=== PATIENT | female | born 1945 | race Caucasian/White ===

== ENCOUNTER 2021-11-27 09:58 | Outpatient (CLI) | payer MEDICARE, SELFPAY ==
--- OUTSIDE RECORDS SUMMARY | 2021-11-27 10:01 | XMS_ITS | Clinical Summary ---
:1945 Author Organization [email or web address] [place] [address] Care Team Providers Name Role Phone Abigail Castaneda MD Primary Care Provider Allergies Active Allergy Reactions Severity Noted Date Comments Propoxyphene Nausea Only Medium 01/05/2009 Nsaids (Non-Steroidal Other - Describe In 10/07/2012 Patient has Anti-Inflammatory Drug) Comment Field bar iatric surgery. Should not ever take NSAIDS due to h igh risk for gastri c ulcers. Medications Medication Sig Dispensed Refills Start Date End Date Status atenolol (TENORMIN) 50 Take by mouth 0 Active mg tablet once daily. Pediatric Take 1 tablet by 0 10/08/2012 Ac tive Multivitamins-Iron mouth 2 times (FLINTSTONES COMPLETE) daily. chewable tablet CALCIUM CITRATE/VITAMIN Take 2,000 mg by 0 Active D3 (CALCIUM CITRATE + D mouth. Take up ORAL) to 2000 mg by oral route every day in divided doses. Cyanocobalamin (VITAMIN Place 2,500 mcg 0 Active B-12) 2,500 mcg subl under the tongue once daily. cholecalciferol (VITAMIN 0 Active D3) 1,000 unit tabletIndications: Achlorhydria, Vitamin B12 deficiency LISINOPRIL ORAL Take 20 mg by 0 Active mouth. 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 Vitamin B12 deficiency 10/07/2012 Status sleeve gastrectomy for weight loss 10/06/2012 Morbid obesity 08/06/2012 Body mass index 45.0-49.9, adult 08/06/2012 Essential hypertension, benign 08/06/2012 DJD (degenerative joint disease) 08/06/2012 Overview: -bilateral hip and knee replacements Lower extremity edema 08/06/2012 Missing teeth, acquired 08/06/2012 Personal history of colonic polyps 01/17/2012 History of colon polyps Immunizations Name Administration Dates Next Due COVID-19 vaccine ([employer] 30mcg/0.3mL) PF, 1, 04/14/2020 MDV Social History Tobacco Use Types Packs/Day Years Used Date Former Smoker Cigarettes Quit: 03/18/18 74 Smokeless Tobacco: Never Used Alcohol Use Standard Drinks/Week Comments Yes 0 (1 standard drink = 0.6 oz pure alcoho l) once in awhile Alcohol Habits Answer Date Recorded How often do you have a drink containing alcohol? Not asked How many drinks containing alcohol do you have on a Not aske d typical day when you are drinking? How often do you have six or more drinks on one Not asked occasion? Comment: once in awhile 09/28/2014 Sex Assigned at Date Recorded Not on file Obstetrics History Last Filed Vital Signs Vital Sign Reading Time Taken Comments Blood Pressure 143/76 01/09/2017 1:05 PM CDT Pulse 59 01/09/2017 1:05 PM CDT Temperature 36.5 ??C (97.7 ??F) 01/09/2017 10:08 AM CDT Respiratory Rate 16 01/09/2017 1:05 PM CDT Oxygen Saturation 96% 01/09/2017 1:05 PM CDT Inhaled Oxygen Concentration - - Weight 84 kg (185 lb 1.6 oz) 01/09/2017 10:08 AM CDT Height 160 cm (5' 3) 01/09/2017 10:08 AM CDT Body Mass Index 32.79 01/09/2017 10:08 AM CDT Plan of Treatment Health Maintenance Due Date Last Done Comments Tdap 06/23/1954 Depression screening for age 12+ 1955 Hepatitis C screening for age 18-79 06/23/1961 Tetanus booster 1963 Zoster (shingles) series for age 50+ 06/23/1993 (1 of 2) DEXA/DXA scan for age 65+ 06/23/2008 Medicare Wellness for age 65+ 06/23/2008 Pneumococcal series for age 65+ (1 - 06/23/2008 PCV) BMI (ht and wt on same day) for age 1012/17/2017 12/17/2016 18+ COVID-19 vaccine series (4 - Booster 04/15/2021 12/14/2020, 05/05/2020, for Pfizer series) 04/14/2020 Influenza for age 65+ 11/16/2021 Medical Devices Implanted Type Area Clinical Operations Specialist Device Shelf Model / Identifier Expiration Serial / Date Lot Seamguard Reinforcement 60 Flex - [id number] N/A: Osvaldo Vega re And [id number] / Implanted: Qty: 3 on 10/06/2012 at [facility] / [id number] Results Not on filefrom Last 3 Months Insurance Payer Benefit Plan / Subscriber ID Effective Dates Phone Addre ss Type Group MEDICARE PART B MEDICARE PART B [id number] 2008-Presen ATTN: CLAIMS - HB USE ONLY HB ONLY t [address] [place] [address] MEDICARE PART A MEDICARE PART A [id number] 2008-Presen ATTN: CLAIMS - HB USE ONLY HB ONLY t [address] [place] [address] MEDICARE PART B MEDICARE PART B [id number] 2008-Presen ATTN: CLAIMS - HB USE ONLY HB ONLY t [address] [place] [address] BLUE CROSS MR LEVI CROSS [id number] 2016-Presen [address] [address] [place] [address] [place], [place] [id number] BLUE CROSS MR MR BC [place] [id number] 2014-Presen [address] [place] [address] BLUE CROSS BLUE CROSS [id number] 2016-Presen [address] [address] [place] [address], [place] [id number] [place],Shanna Alavrado Personal/Family Self 1945 [id number] [place] [place] [address] Bridger Cuevasard Loren Personal/Family Self 11/07/1941 [address] [place] [address] Advance Directives Latest Code Status on File Code Status Date Activated Date Inactivated Comments Full Code 10/06/2012 8:22 AM 10/08/2012 6:08 PM Care Teams Biomedical Electronics Technician Relationship Specialty Start Date End Date Abigail Castaneda MD PCP - General 12/10/08
== END 2021-11-27 09:59 | disposition home or self-care (01) ==
PROVIDERS: PCP Internal Medicine; Visit Provider Obstetrics & Gynecology
DX: Z00.00 Encounter for general adult medical examination without abnormal findings (principal); I10 Essential (primary) hypertension; R32 Unspecified urinary incontinence; Z13.6 Encounter for screening for cardiovascular disorders
CPT/HCPCS: 80048; 80061; 87086

== ENCOUNTER 2021-12-07 12:14 | Outpatient (REF) | payer MEDICARE, BC, SELFPAY ==
--- OUTSIDE RECORDS SUMMARY | 2021-12-07 12:18 | XMS_ITS | Clinical Summary ---
:1945 Author Organization [facility] [place] [address] Care Team Providers Name Role Phone Abigail [...] Name Administration Dates Next Due COVID-19 vaccine ([employer] 30mcg/0.3mL) PF, 1, 04/14/2020 MDV Social History [...] 65+ 11/16/2021 Medical Devices Implanted Type Area Hog Slaughterer Device Shelf Model / Identifier Expiration Serial / Date Lot Seamguard Reinforcement 60 Flex - [id number] N/A: Osvaldo Vega re And [id number] / Implanted: Qty: 3 on 10/06/2012 at [facility] / [id number] Results Not on filefrom Last 3 Months Insurance Payer Benefit Plan / Subscriber ID Effective Dates Phone Addre ss Type Group MEDICARE PART B MEDICARE PART B [id number] 2008-Presen ATTN: CLAIMS - HB USE ONLY HB ONLY t [address] [place] [address] MEDICARE PART A MEDICARE PART A [id number] 2008-Presen ATTN: CLAIMS - HB USE ONLY HB ONLY t [address] [place] [address] MEDICARE PART B MEDICARE PART B [id number] 2008-Presen ATTN: CLAIMS - HB USE ONLY HB ONLY t [address] [place] [address] BLUE CROSS MR LEVI CROSS [id number] 2016-Presen [address] [address] [place], [place] [phone] BLUE CROSS MR MR BC [place] [id number] 2014-Presen [address] [place] [address] BLUE CROSS BLUE CROSS [id number] 2016-Presen [address] [address] [place] [address] [place], [place] [id number] [place],Shanna Alvarado Personal/Family Self 1945 [id number] [place] [address] Bridger Cuevasard Loren Personal/Family Self 11/07/1941 66 [address] [place] [address] Advance Directives Latest Code Status on File Code Status Date Activated Date Inactivated Comments Full Code 10/06/2012 8:22 AM 10/08/2012 6:08 PM Care Teams Foreign Exchange Position Clerk Relationship Specialty Start Date End Date Abigail Castaneda MD PCP - General 12/10/08
[2021-12-07 13:03] LABS: Basophils Absolute Auto 0.04 K/uL (0.00-0.30); Basophils Percent Auto 0.5 % (0.0-3.0); Eosinophils Absolute Auto 0.22 K/uL (0.00-0.50); Hematocrit 46.7 % (33.0-51.0); Hemoglobin* 15.4 gm/dL (12.0-16.0); Immature Granulocytes Abs Auto 0.01 K/uL (0.00-0.30); Lymphocytes Percent Auto 19.8 % (20-44); Mean Corpuscular HGB Conc 33 gm/dL (32-36); Mean Corpuscular Hemoglobin 29 pg (26-34); Mean Corpuscular Volume 87 fL (80-100); Monocytes Percent Auto 10.1 % (0.0-11.0); Neutrophils Absolute Auto 4.85 K/uL (1.7-7.0); Neutrophils Percent Auto 66.5 % (42.0-72.0); Platelet Count* 179 K/uL (140-440); RDW Coefficient of Variation % 12.6 % (11.5-15.5); Red Blood Count 5.36 m/uL (4.00-5.20); White Blood Count* 7.31 K/uL (4.50-11.00)
[2021-12-07 13:05] LABS: Chloride* 100 mmol/L (96-114); Sodium* 134 mmol/L (135-149)
[2021-12-07 13:06] LABS: Potassium* 4.5 mmol/L (3.6-5.1)
[2021-12-07 13:08] LABS: Alanine Aminotransferase* 13 U/L (4-35); Alkaline Phosphatase* 77 U/L (40-150); Aspartate Amino Transferase* 23 U/L (12-35); Bilirubin Total* 0.6 mg/dL (0.1-1.5); Blood Urea Nitrogen* 15 mg/dL (7-30); Carbon Dioxide* 29 mmol/L (20-32); Creatinine* 0.7 mg/dL (0.5-1.5); Estimated Glomerular Filt Rate 88 ml/min; Total Protein* 6.1 g/dL (6.0-8.3)
[2021-12-07 13:09] LABS: Calcium* 9.3 mg/dL (8.4-10.6); Glucose* 92 mg/dL (60-115)
[2021-12-07 13:12] LABS: Slide Review Reflex No
[2021-12-07 13:13] LABS: Vitamin B12* 676 pg/mL (243-894)
== END 2021-12-07 12:15 | disposition home or self-care (01) ==
LOC: LAB 12:14
PROVIDERS: PCP Internal Medicine; Visit Provider Surgery
DX: K20.90 Esophagitis, unspecified without bleeding (principal); Z98.84 Bariatric surgery status
CPT/HCPCS: 36415; 80053; 82607; 85025

== ENCOUNTER 2022-01-05 11:04 | Outpatient (CLI) | payer MEDICARE, BC, SELFPAY ==
--- OUTSIDE RECORDS SUMMARY | 2022-01-05 11:07 | XMS_ITS | Clinical Summary ---
:1945 Author Organization [facility] [place] [address] Care Team Providers Name Role Phone Abigail [...] Name Administration Dates Next Due COVID-19 vaccine ([employer] 30mcg/0.3mL) PF, 1, 04/14/2020 MDV Social History [...] 18+ COVID-19 vaccine series (4 - Booster 02/08/2021 12/14/2020, 05/05/2020, for Pfizer series) 04/14/2020 Influenza for age 65+ 11/16/2021 Medical Devices Implanted Type Area Deployment Technician Device Shelf Model / Identifier Expiration Serial / Date Lot Seamguard Reinforcement 60 Flex - [id number] N/A: Osvaldo Vega re And [id number] / Implanted: Qty: 3 on 10/06/2012 at [facility] / [id number] Results Not on filefrom Last 3 Months Insurance Payer Benefit Plan / Subscriber ID Effective Dates Phone Addre ss Type Group MEDICARE PART B MEDICARE PART B [id number] 2008-Presen ATTN: CLAIMS - HB USE ONLY HB ONLY t [address] [place] [address] MEDICARE PART A MEDICARE PART A [id number] 2008-Presen ATTN: CLAIMS - HB USE ONLY HB ONLY t [address] [place] [address] MEDICARE PART B MEDICARE PART B [id number] 2008-Presen ATTN: CLAIMS - HB USE ONLY HB ONLY t [address] [place] [address] BLUE CROSS MR LEVI CROSS [id number] 2016-Presen [address] [address] [place] [address] [place], [place] [id number] BLUE CROSS MR MR BC [place] [id number] 2014-Presen [address] [place] [address] BLUE CROSS BLUE CROSS [id number] 2016-Presen [address] [address] [place] [address] [place] [address] [place], [place] [id number] [place],Shanna Alvarado Personal/Family Self 1945 [id number] [place] [address] Bridger Cuevasard Loren Personal/Family Self 11/07/1941 66 [address] [place] [place] [address] Advance Directives Latest Code Status on File Code Status Date Activated Date Inactivated Comments Full Code 10/06/2012 8:22 AM 10/08/2012 6:08 PM Care Teams Clinical Application Consultant Relationship Specialty Start Date End Date Abigail Castaneda MD PCP - General 12/10/08
--- NOTE | 2022-01-05 11:30 | CRLHL7_ITS ---
For Patients: As a result of the Century Cures Act, medical imaging exams and procedure reports are released immediately into your electronic medical record. You may view this report before your referring provider. If you have questions, please contact your health care provider. BILATERAL SCREENING MAMMOGRAM WITH COMPUTER-AIDED DETECTION AND TOMOSYNTHESIS TECHNIQUE: CC and MLO views were obtained. These mammographic images have been obtained using full-field digital technique. These mammographic images were interpreted with the benefit of computer-aided detection. Breast Tomosynthesis was used in this interpretation. COMPARISON FILM: 01/04/21, 01/04/20, 01/02/19. FINDINGS: There are scattered areas of fibroglandular density IMPRESSION: There is no radiographic evidence for malignancy. ASSESSMENT: BI-RADS Category 2: Benign RECOMMENDATION: Routine screening mammogram in 1 year. A lay language report of this examination will be provided to the patient. Bakari Flores M.D. Diagnostic Radiologist [email or web address] KRYSTAL/Dictated by: Bakari Flores MD @ 01/05/2022 12:38:00 PM (Electronically Signed)
== END 2022-01-05 11:05 | disposition home or self-care (01) ==
LOC: MAMMO 11:04
PROVIDERS: PCP Internal Medicine; Visit Provider Internal Medicine
DX: Z12.31 Encounter for screening mammogram for malignant neoplasm of breast (principal)
CPT/HCPCS: 77063; 77067

== ENCOUNTER 2022-01-11 08:03 | Outpatient (CLI) | payer MEDICARE, BC, SELFPAY ==
--- OUTSIDE RECORDS SUMMARY | 2022-01-11 08:05 | XMS_ITS | Clinical Summary ---
:1945 Author Organization [facility] [place] [address] Care Team Providers Name Role Phone Abigail [...] Name Administration Dates Next Due COVID-19 vaccine ([employer] 30mcg/0.3mL) PF, 1, 04/14/2020 MDV Social History [...] 65+ 11/16/2021 Medical Devices Implanted Type Area Managing Director Device Shelf Model / Identifier Expiration Serial / Date Lot Seamguard Reinforcement 60 Flex - [id number] N/A: Osvaldo Vega re And [id number]# / Implanted: Qty: 3 on 10/06/2012 at [facility] / [id number] Results Not on filefrom Last 3 Months Insurance Payer Benefit Plan / Subscriber ID Effective Dates Phone Addre ss Type Group MEDICARE PART B MEDICARE PART B [id number] 2008-Presen ATTN: CLAIMS - HB USE ONLY HB ONLY t [address] [place] [address] MEDICARE PART A MEDICARE PART A [id number] 2008-Presen ATTN: CLAIMS - HB USE ONLY HB ONLY t [address] [place] [address] MEDICARE PART B MEDICARE PART B [id number] 2008-Presen ATTN: CLAIMS - HB USE ONLY HB ONLY t [address] [place] [address] BLUE CROSS MR LEVI CROSS [id number] 2016-Presen [address] [address] [place] [address] [place], [place] [phone] BLUE CROSS MR MR BC [place] [id number] 2014-Presen [address] [place] [address] BLUE CROSS BLUE CROSS [id number] 2016-[place]en [address] [address] [place] [address] [place], [place] [id number] [place],Shanna Alvarado Personal/Family Self 1945 [id number] [place] [address] Bridger Cuevasard Loren Personal/Family Self 11/07/1941 66 [address] [place] [address] Advance Directives Latest Code Status on File Code Status Date Activated Date Inactivated Comments Full Code 10/06/2012 8:22 AM 10/08/2012 6:08 PM Care Teams Senior Electronics Design Engineer Relationship Specialty Start Date End Date Abigail Castaneda MD PCP - General 12/10/08
== END 2022-01-11 08:04 | disposition home or self-care (01) ==
PROVIDERS: PCP Internal Medicine; Visit Provider Surgery
DX: Z12.11 Encounter for screening for malignant neoplasm of colon (principal); K63.5 Polyp of colon; K62.1 Rectal polyp; K63.89 Other specified diseases of intestine; Z86.010 Personal history of colon polyps
CPT/HCPCS: 45380; 45385; 88305; 99153; J1200; J2250; J3010

== ENCOUNTER 2022-04-02 12:25 | Outpatient (CLI) | payer MEDICARE, BC, SELFPAY | END 2022-04-02 12:26 | disposition home or self-care (01) | PROVIDERS: PCP Internal Medicine; Visit Provider Obstetrics & Gynecology | DX: R82.90 Unspecified abnormal findings in urine (principal) | CPT/HCPCS: 87086 ==

== ENCOUNTER 2022-06-07 07:41 | Day surgery (SDC) | payer MEDICARE, BC, SELFPAY ==
[2022-06-07] VITALS (9 sets, daily range): BP systolic 153–176; BP diastolic 72–86; PULSE 64–68; RESP 15–20; TEMP 36.5–36.6; O2SAT 95–98; BMI 30.9
--- NOTE | 2022-06-07 09:19 | P.ORPRC_ITS ---
Procedure Note Date of procedure: 06/07/22 Procedure: Preop diagnosis: Left upper extremity carpal tunnel syndrome Postop diagnosis: Left upper extremity carpal tunnel syndrome Procedure: Left upper extremity carpal tunnel release Anesthesia: Local Surgeon: Hilton Salazar MD video production assistant: HOLLIE Harrell EBL: 5 mL Complications: None Specimens: None Drains: None Indications: The patient has a history of left upper extremity carpal tunnel syndrome symptoms. Despite appropriate nonoperative management consisting of nighttime bracing and occupational therapy they continue to have symptoms. Operative intervention was recommended. The risks, benefits alternatives and expected outcomes were discussed in detail. These included but were not limited to: Infection, bleeding, injury to blood vessel or nerve, venous thromboembolism. All questions were answered to their satisfaction. The patient was placed supine on the operating room table. Local anesthesia was established with 0.5% Marcaine without epinephrine and 2% lidocaine without epinephrine. The hand was prepped and draped in usual sterile fashion. The limb was elevated the forearm pneumatic tourniquet was inflated to 250 mm of mercury. A longitudinal incision was made centered over the radial border of the ring f travon at the base of the palm. Subcutaneous dissection was sharply taken through the palmar fascia and the palmaris brevis to the transverse carpal ligament. The ligament was divided in line with the incision. Proximal and distal dissection was carried with tenotomy and Metzenbaum scissors for a wide decompression of the carpal tunnel. The tourniquet was released, bleeding was controlled with direct pressure. The wound was closed with a 3-0 nylon. A bulky dry dressing was applied, sponge and needle counts were correct x 2. The patient tolerated the procedure well, there were no apparent complications. They were sent to same day surgery in satisfactory condition. Plan: Use of the hand as tolerates. Discontinue the intraoperative dressing on postoperative day 3 and may get the wound wet as tolerates. Follow up in the office in 2 weeks for a wound check and suture removal.
== END 2022-06-07 09:40 | disposition home or self-care (01) ==
PROVIDERS: PCP Internal Medicine; Visit Provider Orthopaedic Surgery
PROC: (CPT 64721; principal; 2022-06-07 08:45)
DX: G56.02 Carpal tunnel syndrome, left upper limb (principal)
CPT/HCPCS: 64721

== ENCOUNTER 2022-11-30 08:30 | Outpatient (CLI) | payer MEDICARE, BC, SELFPAY | END 2022-11-30 08:31 | disposition home or self-care (01) | LOC: NFLDREF 12-04 09:27 | PROVIDERS: PCP Internal Medicine; Referring Provider Internal Medicine; Visit Provider Internal Medicine | DX: Z00.00 Encounter for general adult medical examination without abnormal findings (principal); I10 Essential (primary) hypertension; E66.9 Obesity, unspecified; Z98.84 Bariatric surgery status; Z13.0 Encounter for screening for diseases of the blood and blood-forming organs and certain disorders involving the immune mechanism; I35.1 Nonrheumatic aortic (valve) insufficiency; Z79.899 Other long term (current) drug therapy; Z13.21 Encounter for screening for nutritional disorder | CPT/HCPCS: 80053; 82306; 82525; 82607; 82728; 82747; 83735; 84443; 84446; 84590; 84597; 84630 ==

== ENCOUNTER 2022-12-03 08:22 | Outpatient (CLI) | payer MEDICARE, BC, SELFPAY | END 2022-12-03 08:23 | disposition home or self-care (01) | PROVIDERS: PCP Internal Medicine; Visit Provider Internal Medicine | DX: Z00.00 Encounter for general adult medical examination without abnormal findings (principal); I10 Essential (primary) hypertension; Z98.84 Bariatric surgery status | CPT/HCPCS: 82525; 84630 ==

== ENCOUNTER 2022-12-17 13:28 | Outpatient (CLI) | payer MEDICARE, BC, SELFPAY ==
--- NOTE | 2022-12-17 14:00 | CRLHL7_ITS ---
For Patients: As a result of the Century Cures Act, medical imaging exams and procedure reports are released immediately into your electronic medical record. You may view this report before your referring provider. If you have questions, please contact your health care provider. INDICATION: Epigastric pain, dyspnea. COMPARISON: None available. TECHNIQUE: Small- to moderate-sized hiatal hernia. Severe coronary artery calcifications. Dense mitral annular calcification. In the visualized portions of the lung bases there is also a calcified right lower lobe pulmonary nodule measuring 6 mm. No pleural effusion. FINDINGS: There are no renal or ureteral calculi. There is a pessary present. Distal rectal prolapse present. Endovaginal prolapse. Urinary bladder also somewhat low. Cholecystectomy change. Total left and right hip arthroplasty change. There is cystic change surrounding the acetabular component of the right hip, which could be particle disease. Severe scoliosis. Multilevel degenerative changes of the spine. Patient status post previous sleeve gastrectomy. Cholecystectomy change. No splenomegaly. Noncirrhotic liver morphology. Large cystic structure along the left pelvic sidewall measuring 3.6 x 4.3 cm appears to be arising from the bursa or a periarticular cyst in the left hip. No abdominal aortic aneurysm. Atherosclerotic change at present. No bowel obstruction. IMPRESSION : 1. Previous sleeve gastrectomy. Umdfq-fw-wyabgouf hiatal hernia. No free intraperitoneal air or fluid. Previous cholecystectomy change. No bowel obstruction. 2. No renal or ureteral calculi. 3. Severe coronary artery calcification. 4. Multiple other additional findings as outlined above. Please note that all CT scans at this facility use dose modulation, iterative reconstruction, and/or weight-based dosing when appropriate to reduce radiation dose to as low as reasonably achievable. Dictated by Monroe Carranza MD @ 12/19/2022 6:54:55 PM (Electronically Signed)
== END 2022-12-17 13:29 | disposition home or self-care (01) ==
LOC: CT 13:29
PROVIDERS: PCP Internal Medicine; Visit Provider Internal Medicine
DX: R10.13 Epigastric pain (principal); K44.9 Diaphragmatic hernia without obstruction or gangrene; I25.10 Atherosclerotic heart disease of native coronary artery without angina pectoris; Z98.84 Bariatric surgery status
CPT/HCPCS: 74176

== ENCOUNTER 2022-12-28 10:31 | Outpatient (CLI) | payer MEDICARE, BC, SELFPAY | END 2022-12-28 10:32 | disposition home or self-care (01) | LOC: RAD 10:32 | PROVIDERS: PCP Internal Medicine; Visit Provider Internal Medicine | DX: I35.1 Nonrheumatic aortic (valve) insufficiency (principal); I35.0 Nonrheumatic aortic (valve) stenosis; I34.0 Nonrheumatic mitral (valve) insufficiency | CPT/HCPCS: 93306 ==

== ENCOUNTER 2023-01-07 08:53 | Outpatient (CLI) | payer MEDICARE, BC, SELFPAY ==
--- NOTE | 2023-01-07 09:15 | CRLHL7_ITS ---
For Patients: As a result of the Cures Act, medical imaging exams and procedure reports are released immediately into your electronic medical record. You may view this report before your referring provider. If you have questions, please contact your health care provider. BILATERAL SCREENING MAMMOGRAM WITH COMPUTER-AIDED DETECTION AND TOMOSYNTHESIS TECHNIQUE: CC and MLO views were obtained. These mammographic images have been obtained using full-field digital technique. These mammographic images were interpreted with the benefit of computer-aided detection. Breast Tomosynthesis was used in this interpretation. COMPARISON FILM: 01/05/22, 01/04/21, 01/04/20. FINDINGS: There are scattered areas of fibroglandular density IMPRESSION: There is no radiographic evidence for malignancy. ASSESSMENT: BI-RADS Category 2: Benign RECOMMENDATION: Routine screening mammogram in 1 year. A lay language report of this examination will be provided to the patient. Bakari Flores M.D. Diagnostic Radiologist [email or web address] JEMMA/pratima Transcribed: 7:46 p.cy andujar/Dictated by: Bakari Flores MD @ 01/07/2023 11:30:00 AM (Electronically Signed)
== END 2023-01-07 08:54 | disposition home or self-care (01) ==
LOC: MAMMO 08:54
PROVIDERS: PCP Internal Medicine; Visit Provider Internal Medicine
DX: Z12.31 Encounter for screening mammogram for malignant neoplasm of breast (principal)
CPT/HCPCS: 77063; 77067

== ENCOUNTER 2023-01-17 08:39 | Outpatient (CLI) | payer MEDICARE, BC, SELFPAY ==
--- NOTE | 2023-01-17 10:10 | P.ANES_ITS ---
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
--- NOTE | 2023-01-17 10:37 | W.ANESCHARGE ---
Anesthesia Charges Start Date/Time Anesthesia Start Date: 01/17/23 Anesthesia Start Time: 09:25 Stop Date/Time Anesthesia Stop Date: 01/17/23 Anesthesia Stop Time: 10:04 Summary Extremes of Age - Over 70 or under 1: MDA
== END 2023-01-17 08:40 | disposition home or self-care (01) ==
LOC: OP CLINIC 08:40
PROVIDERS: PCP Internal Medicine; Visit Provider Surgery
DX: Z86.010 Personal history of colon polyps (principal); K63.5 Polyp of colon; K62.1 Rectal polyp; Z98.890 Other specified postprocedural states
CPT/HCPCS: 00811; 45380; 45385; 88305; 99100; J2704

== ENCOUNTER 2023-08-19 11:40 | Outpatient (CLI) | payer MEDICARE, BC, SELFPAY ==
--- OUTSIDE RECORDS SUMMARY | 2023-08-19 11:46 | XMS_ITS | Encounter Summary ---
Author Organization [facility] Address [address] [address] Phone Care Team Providers Care Laborer Starch Factory Name Role Phone Abigail Castaneda MD Primary Care Provider +1- [phone] Reason for Visit * Reason Comments Refill Request Encounter Details Date Type Department Care Team (Late st Contact Info) Description 08/20/2022 Refill [facility] [address] [place] [address] [phone] Jimy Linda MD [address] [facility] [address] [place], [place] [phone] Refill Request Social History Tobacco Use Types Packs/Day Years Used Date Smoking Tobacco: Former Smokeless Tobacco: Never Alcohol Use Standard Drinks/Week Comments Yes 0 (1 standard drink = 0.6 oz pur e alcohol) social Sex and Gender Information Value Date Recorded Sex Assigned at Female 01/10/2021 9:47 AM CDT Gender Identity Female 01/10/2021 9:47 AM CDT Sexual Orientation Not on file documented as of this encounter Plan of Treatment Not on file documented as of this encounter Visit Diagnoses Diagnosis Gastroesophageal reflux disease with esophagitis without hemorrhage Esophageal dysphagia Dysphagia, pharyngoesophageal phase documented in this encounter Care Teams Laborer Starch Factory Relationship Specialty Start Date End Date Abigail Castaneda MD [address] [address] PCP - General Internal Medicine 9/28/22 documented as of this encounter
--- OUTSIDE RECORDS SUMMARY | 2023-08-19 11:46 | XMS_ITS | Encounter Summary ---
Author Organization [facility] Address [address] [address] Phone Care Team Providers Care Internal Grinding Machine Operator Name Role Phone Abigail Castaneda MD Primary Care Provider +1- [phone] Reason for Visit * Reason Comments Refill Request Encounter Details Date Type Department Care Team (Late st Contact Info) Description 08/22/2022 Refill [facility] GASTRO[facility]Y [address] [place] [address] [phone] Jimy Linda MD [address] [facility] 400 [place], [place] [phone] Refill Request Social History Tobacco Use Types [...] phase documented in this encounter Care Teams Internal Grinding Machine Operator Relationship Specialty Start Date End Date Abigail Castaneda MD [address] [address] PCP - General Internal Medicine 9/28/22 documented as of this encounter
--- OUTSIDE RECORDS SUMMARY | 2023-08-19 11:46 | XMS_ITS | Clinical Summary ---
Author Organization [facility] Address [place], [place] [address] Care Team Providers Care Telephone Maintainer Name Role Phone Abigail Castaneda MD Primary Care Provider +1- [phone] Allergies Active Allergy Reactions Criticality Noted Date Comments Propoxyphene Nausea Only Medium 01/05/2009 Nsaids (Non-Steroidal Anti-Inflammatory Drug) Other - Describe In Comment Field 10/07/2012 Patient has bariatric surgery. Should not ever take NSAIDS due to high risk for gastric ulcers. Medications Medication Sig Dispensed Refills Start Date End Date Status atenolol (TENORMIN) 50 mg tablet Take by mouth once daily. Active Pediatric Multivitamins-Iron (FLINTSTONES COMPLETE) chewable tablet Take 1 tablet by mouth 2 times daily. 0 10/08/2012 Active CALCIUM CITRATE/VITAMIN D3 (CALCIUM CITRATE + D ORAL) Take 2,000 mg by mouth. Take up to 2000 mg by oral route every day in divided doses. Active Cyanocobalamin (VITAMIN B-12) 2,[address] 2,500 mcg under the tongue once daily. Active cholecalciferol (VITAMIN D3) 1,000 unit tabletIndications:Achl orhydria,Vitamin B12 deficiency 0 Active LISINOPRIL ORAL Take 20 mg by mouth. 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 Vitamin B12 deficiency 10/07/2012 Status sleeve gastrectomy for weight loss 2012 Morbid obesity 08/06/2012 Body mass index 45.0-49.9, adult 08/06/2012 Essential hypertension, benign 08/06/2012 DJD (degenerative joint disease) 08/06/2012 Overview: -bilateral hip and knee replacements Lower extremity edema 08/06/2012 Missing teeth, acquired 08/06/2012 Personal history of colonic polyps 01/17/2012 History of colon polyps Immunizations Name Administration Dates Next Due COVID-19 vaccine (Thinkglue 30mcg/0.3mL) P F, MDV 05/05/2020,04/14/2020 Social History Tobacco Use Types Packs/Day Years Used Date Smoking Tobacco: Former Cigarettes Q uit: 03/18/1975 Smokeless Tobacco: Never Alcohol Use Standard Drinks/Week Comments Yes 0 (1 standard drink = 0.6 oz pur e alcohol) once in awhile Sex and Gender Information Value Date Recorded Sex Assigned at Not on file Gender Identity Not on file Sexual Orientation Not on file Obstetrics History Last Filed Vital Signs Vital Sign Reading Time Taken Comments Blood Pressure 143/76 01/09/2017 1:05 PM CDT Pulse 59 01/09/2017 1:05 PM CDT Temperature 36.5 ??C (97.7 ??F) 01/09/2017 10:08 AM C DT Respiratory Rate 16 01/09/2017 1:05 PM CDT [...] 06/23/1954 Depression screening for age 12+ 1955 Tetanus booster 1963 Zoster (shingles) series for age 50+ (1 of 2) 06/23/1993 DEXA/DXA scan for age 65+ 06/23/2008 Medicare Wellness for age 65+ 06/23/2008 Pneumococcal series for age 65+ (1 of 1 - PCV) 06/23/2008 BMI (ht and wt on same day) for age 18+ 12/17/2017 12/17/2016 COVID-19 vaccine series (2022- season) 2022 01/25/2022, 08/02/2021, 12/14/2020, Additional history exists Influenza for age 65+ 11/17/2023 Medical Devices Implanted Type Area Senior Systems Analyst Device Identifier Shelf Expiration Date Model / Serial / Lot Seamguard Reinforcement 60 Flex - [id number] Implanted:Qty: 3 on 10/06/2012 at [facility] N/A: [employer] [id number] A# / / [id number] Advance Directives * Full Code (Latest Code Status on File) Date Activated Date Inactivated Comments 10/06/2012 8:22 AM 10/08/2012 6:08 PM Care Teams Telephone Maintainer Relationship Specialty Start Date End Date Abigail Castaneda MD PCP - General 12/10/08
--- OUTSIDE RECORDS SUMMARY | 2023-08-19 11:46 | XMS_ITS | Clinical Summary ---
Author Organization [facility] Address [address] [address] Phone Care Team Providers Care Boat Joiner Helper Name Role Phone Abigail Castaneda MD Primary Care Provider +1- [phone] Allergies Active Allergy Reactions Criticality Noted Date Comments Propoxyphene N-Apap Nausea Only Low 01/10/2021 Nsaids Other Low 08/25/2015 Not to take after sleeve gastrectomy Medications Medication Sig Dispensed Refills Start Date End Date Status calcium citrate-vitamin D (Calcium Citrate + D3) 315-200 MG-UNIT oral tablet Take 1 Tablet by mouth three times a day. Active Cholecalciferol (Vitamin D3) 1.25 MG (64565 UT) Capsule Take by mouth. Ac tive Cyanocobalamin [address] under the tongue one time a day as needed. Active lisinopril (Prinivil, Zestril) 20 MG tablet Take by mouth one time a day. 01/03/2021 Active Pediatric Multivitamins-Iron (Flintstones Complete) 18 MG Tablet Chewable Take 2 Tablets by mouth one time a day. Active omeprazole (PriLOSEC) 40 MG delayed-release capsuleIndications:Ga stroesophageal reflux disease with esophagitis without hemorrhage,Esophageal dysphagia TAKE 1 CAPSULE BY MOUTH ONCE DAILY BEFORE MEALS - DO NOT CRUSH 90 Capsule 02/14/2022 Active Active Problems Problem Noted Date Diagnosed Date Bariatric surgery status 12/14/2021 Esophageal dysphagia 03/21/2021 Last Assessment & Plan: Shanna is status post EGD done for evaluation of progressive dysphagia and heartburn. She is status post prior gastric sleeve surgery. She had an esophagram suggesting motility abnormality, hiatal hernia and possible esophageal narrowing with mucosal irregularity. An EGD revealed a 3cm hiatal hernia, erosive and ulcerative distal esophagitis and some tortuosity and dilation of the esophagus. Dilation to 18mm was performed. Biopsies revealed distal esophageal inflammation but were otherwise ok. She has been using Omeprazole 40mg subsequently and is symptomatically much improved and feeling and swallowing much better. We completed a manometry which revealed 2 abnormal horizontal pressure bands throughout with apparent normal relaxation at the LES with normal IRP and normal peristalsis at times. I am uncertain the significance of the manometry findings but would suspect this is secondary to her prior gastric bypass surgery and some abnormal motility contributing to her dysphagia. We have discussed this in detail. I have recommended referral to a tertiary center to evaluate the manometry findings further, although, as she is symptomatically much improved at present she wishes to monitor this further for now and will call with progressive symptoms. She will continue the daily Omeprazole to control her ongoing reflux post gastric bypass and with a hiatal hernia. Gastroesophageal reflux dise ase with esophagitis without hemorrhage 03/21/2021 Surgical History Surgery Date Site/Laterality Comments KNEE ARTHROPLASTY GASTRECTOMY CHOLECYSTECTOMY PARATHYROID GLAND SURGERY CARPAL TUNNEL RELEASE HYSTERECTOMY HIP ARTHROSCOPY UPPER GASTROINTESTINAL ENDOSCOPY 01/10/2021 N/A Procedure: ESOPHAGOGASTRODUODENOSCOP Y; Surgeon: Jimy Linda MD; Location: [facility] END[facility]COPY Medical History Medical History Date Comments Heart murmur Hypertension Hiatal hernia Gastroesophageal reflux disease Family History Medical History Relation Comments GI Disease Father Esophageal Steno sis Relation Status Comments Father Social History Tobacco Use Types Packs/Day Years Used Date Smoking Tobacco: Former Smokeless Tobacco: Never Alcohol Use Standard Drinks/Week Comments Yes 0 (1 standard drink = 0.6 oz pur e alcohol) social Sex and Gender Information Value Date Recorded Sex Assigned at Female 01/10/2021 9:47 AM CDT Gender Identity Female 01/10/2021 9:47 AM CDT Sexual Orientation Not on file Obstetrics History Last Filed Vital Signs Vital Sign Reading Time Taken Comments Blood Pressure 165/91 02/28/2021 9:57 AM SCREEN MACHINE OPERATOR Pulse 63 02/28/2021 9:57 AM SCREEN MACHINE OPERATOR Temperature 36.4 ??C (97.5 ??F) 01/10/2021 10:31 AM C DT Respiratory Rate 18 01/10/2021 11:33 AM CDT Oxygen Saturation 96% 01/10/2021 11:33 AM CDT Inhaled Oxygen Concentration - - Weight 93.4 kg (206 lb) 12/14/2021 8:54 AM CDT Height 158.8 cm (5' 2.5) 12/14/2021 8:54 AM CDT Body Mass Index 37.08 12/14/2021 8:54 AM CDT Plan of Treatment Health Maintenance Due Date Last Done Comments MEDICARE AWV 1945 PERTUSSIS (Standing Order) 06/23/1962 TETANUS (Standing Order) 06/23/1962 Shingrix (Zoster recombinant ) vaccine (Standing Order) (1 of 2) 06/23/1993 RSV Vaccination (60+ yrs) (Abrysvo/Arexvy) (1 - 1-dose 60+ series) 2003 DXA,FEMALES AGE 65 OR GREATER 06/23/2008 Pneumococcal Vaccine: 65+ yr s (Standing Order) (1 of 1 - PCV) 06/23/2008 Influenza Vaccine Seasonal (Standing Order) (#1) 2022 HPV Vaccine (Standing Order) Aged Out No longer eligible based on patient's age to complete this topic Hepatitis B Vaccine (Standin g Order) Aged Out No longer eligible b ased on patient's age to complete this topic Care Teams Boat Joiner Helper Relationship Specialty Start Date End Date Abigail Castaneda MD [facility] [address] [place], [place] [phone] (work) PCP - General Internal Medicine 12/13/21
== END 2023-08-19 11:41 | disposition home or self-care (01) ==
LOC: NFLDREF 11:40
PROVIDERS: PCP Internal Medicine; Visit Provider Obstetrics & Gynecology
DX: R39.15 Urgency of urination (principal)
CPT/HCPCS: 87086

== ENCOUNTER 2023-12-05 07:40 | Outpatient (CLI) | payer MEDICARE, BC, SELFPAY ==
--- OUTSIDE RECORDS SUMMARY | 2023-12-06 08:47 | XMS_ITS | Clinical Summary ---
Author Organization [facility] Address [place], [place] [address] Care Team Providers Care Manager Product Name Role Phone Abigail Castaneda MD Primary Care Provider +1- [phone] Allergies Active Allergy Reactions Criticality Noted Date [...] benign 08/06/2012 DJD (degenerative joint disease) 08/06/2012 Overview (08/06/2012): -bilateral hip and knee replacements Lower extremity edema 08/06/2012 Missing teeth, acquired 08/06/2012 Personal history of colonic polyps 01/17/2012 History of colon polyps Immunizations Name Administration Dates Next Due COVID-19 vaccine ([employer] 30mcg/0.3mL) P F, MDV 05/05/2020,04/14/2020 Social History [...] for age 50+ (1 of 2) 06/23/1993 RSV vaccine for adults or (1 - 1-dose 60+ series) 2003 DEXA/DXA scan for age 65+ 06/23/2008 Medicare Wellness for age 65+ 06/23/2008 Pneumococcal series for age 65+ (1 of 1 - PCV) 06/23/2008 BMI (ht and wt on same day) for age 18+ 12/17/2017 12/17/2016 COVID-19 vaccine series ( season) 2023 01/25/2022, 08/02/2021, 12/14/2020, Additional history exists Influenza for age 65+ 11/17/2023 Medical Devices Implanted Type Area Paper Ruler Device Identifier Shelf Expiration Date Model / Serial / Lot Seamguard Reinforcement 60 Flex - [id number] Implanted:Qty: 3 on 10/06/2012 at [facility] N/A: [facility] [employer] [id number] A# / / [id number] Advance Directives * Full Code (Latest Code Status on File) Date Activated Date Inactivated Comments 10/06/2012 8:22 AM 10/08/2012 6:08 PM Care Teams Manager Product Relationship Specialty Start Date End Date Abigail Castaneda MD PCP - General 12/10/08
--- OUTSIDE RECORDS SUMMARY | 2023-12-06 08:47 | XMS_ITS | Encounter Summary ---
Author Organization [facility] Address [address] [address] Phone Care Team Providers Care Locomotive Driver Name Role Phone Abigail Castaneda MD Primary Care Provider +1- [phone] Reason for Visit * Reason Comments Refill Request Encounter Details Date Type Department Care Team (Late st Contact Info) Description 08/22/2022 Refill [facility] GASTRO[facility]OLOGY [address] [place] [address] [phone] Jimy Linda MD 560 [facility] [address] [place], [place] [phone] Refill Request Social History Tobacco Use Types [...] phase documented in this encounter Care Teams Locomotive Driver Relationship Specialty Start Date End Date Abigail Castaneda MD [address] [address] PCP - General Internal Medicine 9/28/22 documented as of this encounter
--- OUTSIDE RECORDS SUMMARY | 2023-12-06 08:47 | XMS_ITS | Clinical Summary ---
Author Organization [facility] Address [address] [address] Phone Care Team Providers Care Drawing Frame Tender Name Role Phone Abigail Castaneda MD Primary Care Provider +1- [phone] Allergies Active Allergy Reactions Criticality Noted Date Comments Propoxyphene N-Apap Nausea Only Low 01/10/2021 Nsaids Other Low 08/25/2015 Not to take after sleeve gastrectomy Medications Medication Sig Dispensed Refills Start Date End Date Status calcium citrate-vitamin D (Calcium Citrate + D3) 315-200 MG-UNIT oral tablet Take 1 Tablet by mouth three times a day. Active Cholecalciferol (Vitamin D3) 1.25 MG (76762 UT) Capsule Take by mouth. Ac tive [...] ESOPHAGOGASTRODUODENOSCOP Y; Surgeon: Jimy Linda MD; Location: [facility] END[facility]COPY Medical History Medical History Date Comments [...] Comments Blood Pressure 165/91 02/28/2021 9:57 AM EXTENSION SERVICE SPECIALIST IN CHARGE Pulse 63 02/28/2021 9:57 AM EXTENSION SERVICE SPECIALIST IN CHARGE Temperature 36.4 ??C (97.5 ??F) 01/10/2021 10:31 [...] Order) (1 of 1 - PCV) 06/23/2008 COVID-19 Vaccine (2022-2 4 season) 2023 Influenza Vaccine Seasonal (Standing Order) (#1) 2023 HPV Vaccine (Standing Order) Aged Out No longer eligible based on patient's age to complete this topic Hepatitis B Vaccine (Standin g Order) Aged Out No longer eligible b ased on patient's age to complete this topic Care Teams Drawing Frame Tender Relationship Specialty Start Date End Date Abigail Castaneda MD [address] [address] PCP - General Internal Medicine 12/13/21
--- OUTSIDE RECORDS SUMMARY | 2023-12-06 08:47 | XMS_ITS | Encounter Summary ---
Author Organization [facility] Address [address] [address] Phone Care Team Providers Care Malt House Loader Name Role Phone Abigail Castaneda MD Primary Care Provider +1- [phone] Reason for Visit * Reason Comments Refill Request Encounter Details Date Type Department Care Team (Late st Contact Info) Description 08/20/2022 Refill [facility] GASTROENTEROLOGY [address] [place] [address] [phone] Jimy Linda MD 560 [facility] [address] [place], [place] [phone] Refill Request Social History Tobacco Use Types [...] phase documented in this encounter Care Teams Malt House Loader Relationship Specialty Start Date End Date Abigail Castaneda MD [address] [address] PCP - General Internal Medicine 9/28/22 documented as of this encounter
== END 2023-12-05 07:41 | disposition home or self-care (01) ==
LOC: NFLDREF 12-06 08:46
PROVIDERS: PCP Internal Medicine; Referring Provider Internal Medicine; Visit Provider Internal Medicine
DX: I10 Essential (primary) hypertension (principal); Z98.84 Bariatric surgery status; Z13.21 Encounter for screening for nutritional disorder
CPT/HCPCS: 80053; 82306; 82525; 82607; 82728; 83540; 83550; 83735; 84443; 84446; 84590; 84597; 84630

== ENCOUNTER 2024-01-09 09:57 | Outpatient (CLI) | payer MEDICARE, BC, SELFPAY ==
--- OUTSIDE RECORDS SUMMARY | 2024-01-09 10:06 | XMS_ITS | Clinical Summary ---
Author Organization [facility] Address [address] [address] Phone Care Team Providers Care It Audit Manager Name Role Phone Abigail Castaneda MD Primary Care Provider +1- [phone] Allergies Active Allergy Reactions Criticality Noted Date Comments Propoxyphene N-Apap Nausea Only Low 01/10/2021 Nsaids Other Low 08/25/2015 Not to take after sleeve gastrectomy Medications calcium citrate-vitamin D (Calcium Citrate + D3) 315-200 MG-UNIT oral tablet Take 1 Tablet by mouth three times a day. Active Cholecalciferol (Vitamin D3) 1.25 MG (36663 UT) Capsule Take by mouth. Active Cyanocobalamin [address] under the tongue one time a day as needed. Active lisinopril (Prinivil, Zestril) 20 MG tablet Take by mouth one time a day. 01/03/2021 Active Pediatric Multivitamins-Ir on (Flintstones Complete) 18 MG Tablet Chewable Take 2 Tablets by mouth one time a day. Active omeprazole (PriLOSEC) 40 MG delayed-release capsuleIndicatio ns:Gastroesophag eal reflux disease with esophagitis without hemorrhage,Esoph ageal dysphagia TAKE 1 CAPSULE BY MOUTH ONCE DAILY BEFORE MEALS - DO NOT CRUSH 90 Capsule 02/14/2022 Active Active Problems Problem Noted Date Diagnosed Date Bariatric surgery status 12/14/2021 Esophageal dysphagia 03/21/2021 Assessment & Plan (03/21/2021 4:58 PM BACKPACKERS MANAGER): Shanna is status post EGD done for [...] ESOPHAGOGASTRODUODENOSCOP Y; Surgeon: Jimy Linda MD; Location: [facility] Medical History Medical History Date Comments Heart murmur Hypertension Hiatal hernia Gastroesophageal reflux disease Family History Medical History Relation Comments GI Disease Father Esophageal Steno sis Relation Status Comments Father Social History Tobacco Use Types Packs/Day Years Used Date Smoking Tobacco: Former Smokeless Tobacco: Never Alcohol Use Standard Drinks/Week Comments Yes 0 (1 standard drink = 0.6 oz pur e alcohol) social Comments No Sex and Gender Information Value Date Recorded Sex Assigned at Female 01/10/2021 9:47 AM CDT Legal Sex Female 4:14 PM CDT Gender Identity Female 01/10/2021 9:47 AM CDT Sexual Orientation Not on file Obstetrics History Last Filed Vital Signs Vital Sign Reading Time Taken Comments Blood Pressure 165/91 02/28/2021 9:57 AM BACKPACKERS MANAGER Pulse 63 02/28/2021 9:57 AM BACKPACKERS MANAGER Temperature 36.4 ??C (97.5 ??F) 01/10/2021 10:31 [...] vaccine (Standing Order) (1 of 2) 06/23/1993 DXA,FEMALES AGE 65 OR GREATER 06/23/2008 Pneumococcal Vaccine: 65+ yr s (Standing Order) (1 of 1 - PCV) 06/23/2008 RSV Vaccination (60+ yrs) (Abrysvo/Arexvy) (1 - 1-dose 75+ series) 06/23/2018 COVID-19 Vaccine (2023-2 5 season) 2023 Influenza Vaccine Seasonal (Standing Order) (#1) 2023 HPV Vaccine (Standing Order) Aged Out No longer eligible based on patient's age to complete this topic Hepatitis B Vaccine (Standin g Order) Aged Out No longer eligible b ased on patient's age to complete this topic Insurance [facility] [employer] MEDICARE COST PART A&B Care Teams It Audit Manager Relationship Specialty Start Date End Date Abigail Castaneda MD [facility] AND [address] [address] PCP - General Internal Medicine 12/13/21
--- OUTSIDE RECORDS SUMMARY | 2024-01-09 10:06 | XMS_ITS | Encounter Summary ---
Author Organization [facility] Address [address] [address] Phone Care Team Providers Care Fleshing Machine Operator Name Role Phone Abigail Castaneda MD Primary Care Provider +1- [phone] Reason for Visit * Reason Comments Refill Request Encounter Details Date Type Department Care Team (Late st Contact Info) Description 08/20/2022 Refill [facility] GASTROENTEROLOGY [address] [place] [address] [phone] Jimy Linda MD [address] [phone] Refill Request Social History Tobacco Use Types [...] phase documented in this encounter Care Teams Fleshing Machine Operator Relationship Specialty Start Date End Date Abigail Castaneda MD [facility] [address] [place] [address] PCP - General Internal Medicine 12/13/21 documented as of this encounter
--- OUTSIDE RECORDS SUMMARY | 2024-01-09 10:06 | XMS_ITS | Clinical Summary ---
Author Organization [facility] Address [place], [place] [address] Care Team Providers Care Personal Care Service Provider Name Role Phone Abigail Castaneda MD Primary Care Provider +1- [phone] Allergies Active Allergy Reactions Criticality Noted Date [...] Name Administration Dates Next Due COVID-19 vaccine (Loopcam 30mcg/0.3mL) P F, MDV 05/05/2020,04/14/2020 Social History [...] same day) for age 18+ 12/17/2017 12/17/2016 RSV vaccine for adults or (1 - 1-dose 75+ series) 06/23/2018 COVID-19 vaccine series (2023- season) 2023 01/25/2022, 08/02/2021, 12/14/2020, Additional history exists Influenza for age 65+ 11/17/2023 Medical Devices Implanted Type Area Certified Master Locksmith Device Identifier Shelf Expiration Date Model / Serial / Lot Seamguard Reinforcement 60 Flex - [id number] Implanted:Qty: 3 on 10/06/2012 at [facility] N/A: [facility] [employer] [id number] A# / / [id number] Advance Directives * Full Code (Latest Code Status on File) Date Activated Date Inactivated Comments 10/06/2012 8:22 AM 10/08/2012 6:08 PM Care Teams Personal Care Service Provider Relationship Specialty Start Date End Date Abigail Castaneda MD PCP - General 12/10/08
--- OUTSIDE RECORDS SUMMARY | 2024-01-09 10:06 | XMS_ITS | Encounter Summary ---
Author Organization [facility] Address [address] [address] Phone Care Team Providers Care Drawing Operator Name Role Phone Abigail Castaneda MD Primary Care Provider +1- [phone] Reason for Visit * Reason Comments Refill Request Encounter Details Date Type Department Care Team (Late st Contact Info) Description 08/22/2022 Refill [facility] GASTR[facility]Y [address] [place] [address] [phone] Jimy Linda MD [address] [phone] Refill Request Social History Tobacco Use Types [...] phase documented in this encounter Care Teams Drawing Operator Relationship Specialty Start Date End Date Abigail Castaneda MD [facility] [address] [place] [address] PCP - General Internal Medicine 12/13/21 documented as of this encounter
--- NOTE | 2024-01-09 10:15 | CRLHL7_ITS ---
For Patients: As a result of the Century Cures Act, medical imaging exams and procedure reports are released immediately into your electronic medical record. You may view this report before your referring provider. If you have questions, please contact your health care provider. BILATERAL SCREENING MAMMOGRAM WITH COMPUTER-AIDED DETECTION AND TOMOSYNTHESIS TECHNIQUE: CC and MLO views were obtained. These mammographic images have been obtained using full-field digital technique. These mammographic images were interpreted with the benefit of computer-aided detection. Breast Tomosynthesis was used in this interpretation. COMPARISON FILM: 01/07/23, 01/05/22, 01/04/21. FINDINGS: There are scattered areas of fibroglandular density IMPRESSION: There is no radiographic evidence for malignancy. ASSESSMENT: BI-RADS Category 2: Benign RECOMMENDATION: Routine screening mammogram in 1 year. A lay language report of this examination will be provided to the patient. Bakari Flores M.D. Diagnostic Radiologist [email or web address] KRYSTAL/Dictated by: Bakari Flores MD @ 01/10/2024 10:02:00 AM (Electronically Signed)
== END 2024-01-09 09:58 | disposition home or self-care (01) ==
LOC: MAMMO 10:00
PROVIDERS: PCP Internal Medicine; Visit Provider Internal Medicine
DX: Z12.31 Encounter for screening mammogram for malignant neoplasm of breast (principal)
CPT/HCPCS: 77063; 77067

== ENCOUNTER 2024-03-03 10:58 | Outpatient (CLI) | payer MEDICARE, BC, SELFPAY ==
--- NOTE | 2024-03-03 11:30 | CRLHL7_ITS ---
For Patients: As a result of the Century Cures Act, medical imaging exams and procedure reports are released immediately into your electronic medical record. You may view this report before your referring provider. If you have questions, please contact your health care provider. INDICATION: FELL AND HIT HEAD; 1 WEEK AGO TECHNIQUE: CT of the head was performed without IV contrast. COMPARISON: None. FINDINGS: Parenchyma: No acute hemorrhage, infarction, or mass. Moderate scattered periventricular white matter hypoattenuation is nonspecific and is favored to represent chronic small vessel ischemic disease. Scattered dural calcifications. Ventricles and extra-axial spaces: Mild involutional changes. Visualized paranasal sinuses: Clear. Mastoid air cells: Clear. Bones: No focal abnormality. Additional comment: Bilateral lens surgery. IMPRESSION: No acute intracranial abnormality. Please note that all CT scans at this facility use dose modulation, iterative reconstruction, and/or weight-based dosing when appropriate to reduce radiation dose to as low as reasonably achievable. Dictated by Connor Soto MD @ 03/03/2024 11:57:12 AM (Electronically Signed)
== END 2024-03-03 10:59 | disposition home or self-care (01) ==
LOC: CT 11:00
PROVIDERS: PCP Internal Medicine; Visit Provider Internal Medicine
DX: S09.90XA Unspecified injury of head, initial encounter (principal)
CPT/HCPCS: 70450

== ENCOUNTER 2024-05-13 12:49 | Inpatient (IN) | payer MEDICARE, BC, SELFPAY ==
[2024-05-13] VITALS (41 sets, daily range): BP systolic 112–192; BP diastolic 66–124; PULSE 72–96; RESP 10–30; TEMP 36.7–36.9; O2SAT 86–99; BMI 37.8; BMI 33.7
[2024-05-13 13:30] LABS: Troponin, Point-of-Care* 0.01 ng/ml (0.01-0.04)
--- OUTSIDE RECORDS SUMMARY | 2024-05-13 13:31 | XMS_ITS | Encounter Summary ---
Author Organization [facility] Address [address] [address] Phone Care Team Providers Care Irrigation Manager Name Role Phone Abigail Castaneda MD Primary Care Provider +1- [phone] Reason for Visit * Reason Comments Refill Request Encounter Details Date Type Department Care Team (Late st Contact Info) Description 08/22/2022 Refill [facility] GASTROENTEROLOGY [address] [place] [address] [phone] Jimy Linda MD [address] [phone] Refill Request Social History Tobacco Use Types [...] phase documented in this encounter Care Teams Irrigation Manager Relationship Specialty Start Date End Date Abigail Castaneda MD [facility] [address] [place] [address] PCP - General Internal Medicine 12/13/21 documented as of this encounter
[2024-05-13 13:32] LABS: Basophils Absolute Auto 0.01 K/uL (0.00-0.30); Basophils Percent Auto 0.1 % (0.0-3.0); Eosinophils Absolute Auto 0.05 K/uL (0.00-0.50); Eosinophils Percent Auto 0.7 % (0.0-7.0); Hematocrit 48.8 % (33.0-51.0); Hemoglobin* 16.1 gm/dL (12.0-16.0); Immature Granulocytes Abs Auto 0.01 K/uL (0.00-0.30); Immature Granulocytes Pct Auto 0.1 %; Lymphocytes Percent Auto 13.6 % (20-44); Mean Corpuscular HGB Conc 33 gm/dL (32-36); Mean Corpuscular Hemoglobin 30 pg (26-34); Mean Corpuscular Volume 90 fL (80-100); Monocytes Percent Auto 10.3 % (0.0-11.0); Neutrophils Percent Auto 75.2 % (42.0-72.0); Platelet Count* 138 K/uL (140-440); RDW Coefficient of Variation % 12.5 % (11.5-15.5); Red Blood Count 5.45 m/uL (4.00-5.20); White Blood Count* 7.65 K/uL (4.50-11.00)
[2024-05-13 13:41] LABS: PCR FLU A Negative PCR FLU A (Negative); PCR FLU B Negative PCR FLU B (Negative); PCR RSV Negative PCR RSV (Negative); SARS PCR* Negative SARS-CoV-2 (Negative)
[2024-05-13 13:45] LABS: Slide Review Reflex No
[2024-05-13 13:58] LABS: D Dimer Quantitative* 0.81 ug/ml (0.00-0.50)
--- NOTE | 2024-05-13 14:02 | ED_ITS ---
HPI - General Adult General Date Seen: 05/13/24 <Gustavo Spangler - Last Filed: 05/13/24 16:07> Chief complaint: Chest Pain <Gustavo Spangler DO - Last Filed: 05/13/24 16:07> Stated complaint: High BP, respiratory distress <Gustavo Spangler DO - Last Filed: 05/13/24 16:07> Time Seen by Provider: 05/13/24 12:56 <Gustavo Spangler DO - Last Filed: 05/13/24 16:07> Source: patient <Gustavo Spangler DO - Last Filed: 05/13/24 16:07> Mode of arrival: ambulatory <Gustavo Spangler - Last Filed: 05/13/24 16:07> Limitations: no limitations <Gustavo Spangler DO - Last Filed: 05/13/24 16:07> History of Present Illness HPI narrative: patient is an 78-year-old female presenting to emergency department for some chest tightness and shortness of breath. Has been noticing a cough and respiratory symptoms for past 2 days. Her symptoms seem to have been getting worse so she went to urgent care. While there she was hypertensive in the 200 systolic and was sent to the emergency department. She states that shortness of breath still layer and she feels short of breath still But it is better way down. Has been able to do her daily activities. The chest discomfort she describes as a rattling sensation in her chest like congestion. is not aware of any sick contacts. Denies fevers or chills. No history of blood clots. Has never been a smoker. No history of lung disease. Does have hypertension but no other heart disease. Has not noticed any lower extremity swelling other than a chronic right leg swelling that she states is not any different than the normal. No recent travel. Has not had any hemoptysis. <Gustavo Spangler DO - Last Filed: 05/13/24 16:07> Related Data Home medications: Home Medications ?Medication ?Instructions ?Recorded ?Confirmed calcium carbonate (Antacid 200 mg PO BID 09/20/21 05/13/24 (calcium carbonate)) cholecalciferol (vitamin D3) 25 1,000 unit PO .Every 48 Hours 09/20/21 05/13/24 mcg (1,000 unit) tablet cyanocobalamin (vitamin B-12) 1,000 mcg PO QDAY 09/20/21 05/13/24 1,000 mcg capsule multivitamin 2 tab PO QAM 02/16/22 05/13/24 Previous Rx's ?Medication ?Instructions ?Recorded lisinopril 20 mg tablet 20 mg PO DAILY #90 tabs 12/09/23 omeprazole 40 mg capsule,delayed 40 mg PO DAILY #90 caps 12/09/23 release albuterol sulfate 90 mcg/actuation 2 puff inhalation Q4-6H PRN 05/13/24 aerosol inhaler shortness of breath or wheezing #8.5 grams dextromethorphan-guaifenesin 20 1 tab PO Q4-6H PRN cough #20 tabs 05/13/24 mg-400 mg tablet prednisone 20 mg tablet 40 mg (2 x 20 mg) PO DAILY #10 tabs 05/13/24 <Gustavo Spangler DO - Last Filed: 05/13/24 16:07> Allergies/adverse reactions: Allergies Allergy/AdvReac Type Severity Reaction Status Date / Time propoxyphene Allergy Intermediate Nausea Verified 05/13/24 12:59 NSAIDS (Non-Steroidal AdvReac Unknown Verified 05/13/24 12:59 Anti-Inflamma <Gustavo Spangler DO - Last Filed: 05/13/24 16:07> Review of Systems Status of ROS: Reports: 10 or more systems reviewed and unremarkable except as noted in History and below <Gustavo Spangler DO - Last Filed: 05/13/24 16:07> [facility] Medical History: Medical History History of rheumatic fever (11/10/08) ?Z86.79 - Personal history of other diseases of the circulatory system (ICD- 10) <Gustavo Spangler DO - Last Filed: 05/13/24 16:07> Surgical History: Surgical History History of gastric bypass (10/06/12) ?Z98.84 - Bariatric surgery status (ICD-10) History of carpal tunnel surgery of left wrist (06/07/22) ?Z98.890 - Other specified postprocedural states (ICD-10) 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) ?Z96.612 - Presence of left artificial shoulder joint (ICD-10) History of tubal ligation (11/10/08) ?Z98.51 - Tubal ligation status (ICD-10) History of total knee replacement (11/10/08) ?Z96.659 - Presence of unspecified artificial knee joint (ICD-10) History of total hip replacement (11/10/08) ?Z96.649 - Presence of unspecified artificial hip joint (ICD-10) History of squamous cell carcinoma in situ (SCCIS) of skin (2020) ?Z86.007 - Personal history of in-situ neoplasm of skin (ICD-10) History of primary hyperparathyroidism (11/10/08) ?Z86.39 - Personal history of other endocrine, nutritional and metabolic disease (ICD-10) History of hysterectomy (02/13/06) ?Z90.710 - Acquired absence of both cervix and uterus (ICD-10) History of cholecystectomy (11/10/08) ?Z90.49 - Acquired absence of other specified parts of digestive tract (ICD- 10) History of cataract extraction (12/2015) ?Z98.49 - Cataract extraction status, unspecified eye (ICD-10) History of carpal tunnel syndrome (11/10/08) ?Z86.69 - Personal history of other diseases of the nervous system and sense organs (ICD-10) <Gustavo Spangler DO - Last Filed: 05/13/24 16:07> Social History: Social History What is your current living situation?: I presently have a place to live Problems where you live: declined to answer In the past 12 months, utilities in danger of being shut off: no In past 12 months, lack of transportation kept you from medical appts, meetings, work, or getting things needed for daily living: no In the past 12 mos, have been you worried that your food would run out before you had money to buy more?: never true Smoking Status: Never smoker Do you use any of these nicotine containing products: None How often do you have a drink containing alcohol: never How often do you have six or more drinks on one occasion: Never AUDIT-C Alcohol total score: 0 Non-prescribed substance use: denies use How often does anyone, including family, friends and others, physically hurt you : never How often does anyone, including family, friends and others, insult or talk down to you: never How often does anyone, including family, friends and others, threaten you with harm: never How often does anyone, including family, friends and others, scream or curse at you: never <Gustavo Spangler DO - Last Filed: 05/13/24 16:07> Exam Narrative: Exam Narrative: Const: Well-nourished, Well-developed, in mild distress Eyes: PERRL, no conjunctival injection, and symmetrical lids HENT: Atraumatic external nose and ears. Moist mucous membranes. Neck: Symmetric, trachea midline, No thyromegaly. CVS: RRR, No murmurs or gallops. Peripheral pulses 2+ and equal in all extremities RESP: Unlabored respiratory effort. Mild wheezing heard throughout GI: Nontender/Nondistended, No rebound or guarding. MSK:Extremities w/o deformity, Normal Active ROM Skin: Warm, Dry. No rashes or lesions. Neuro: Normal Muscle tone, No focal neurological deficits. Psych: Awake, Alert, & Oriented x3. Appropriate mood and affect. <Gsutavo Spangler DO - Last Filed: 05/13/24 16:07> Const: Vital Signs, click to edit/add: Vital Signs - 24 hr 05/13/24 12:54 05/13/24 13:01 05/13/24 13:09 Temperature 98.5 F Pulse Rate 78 76 Pulse Rate [Right Pulse Oximeter] 80 Respiratory Rate 18 21 16 Blood Pressure 129/103 H Blood Pressure [Ri ght Upper Arm] 192/121 H Pulse Oximetry 88 93 93 Oxygen Delivery Me thod Room Air 05/13/24 13:15 05/13/24 13:18 05/13/24 13:30 Temperature Pulse Rate 77 75 79 Pulse Rate [Right Pulse Oximeter] Respiratory Rate 29 H 20 14 Blood Pressure 162/82 H Blood Pressure [Ri ght Upper Arm] Pulse Oximetry 95 90 90 Oxygen Delivery Me thod 05/13/24 13:32 05/13/24 13:35 05/13/24 13:36 Temperature Pulse Rate 75 73 Pulse Rate [Right Pulse Oximeter] Respiratory Rate 23 22 18 Blood Pressure 142/124 H 133/79 Blood Pressure [Ri ght Upper Arm] Pulse Oximetry 91 93 93 Oxygen Delivery Me thod 05/13/24 13:45 05/13/24 14:00 05/13/24 14:02 Temperature Pulse Rate 76 72 72 Pulse Rate [Right Pulse Oximeter] Respiratory Rate 15 21 22 Blood Pressure 152/76 H Blood Pressure [Ri ght Upper Arm] Pulse Oximetry 94 95 94 Oxygen Delivery Me thod 05/13/24 14:03 05/13/24 14:15 05/13/24 14:30 Temperature Pulse Rate 74 73 87 Pulse Rate [Right Pulse Oximeter] Respiratory Rate 17 23 27 H Blood Pressure Blood Pressure [Ri ght Upper Arm] Pulse Oximetry 94 90 94 Oxygen Delivery Me thod 05/13/24 14:33 05/13/24 14:45 05/13/24 15:00 Temperature Pulse Rate 83 81 83 Pulse Rate [Right Pulse Oximeter] Respiratory Rate 21 30 H 16 Blood Pressure 138/77 Blood Pressure [Ri ght Upper Arm] Pulse Oximetry 92 91 91 Oxygen Delivery Me thod 05/13/24 15:02 05/13/24 15:30 05/13/24 15:31 Temperature Pulse Rate 82 87 86 Pulse Rate [Right Pulse Oximeter] Respiratory Rate 17 18 17 Blood Pressure 171/85 H 183/101 H Blood Pressure [Ri ght Upper Arm] Pulse Oximetry 90 89 89 Oxygen Delivery Me thod 05/13/24 15:32 05/13/24 16:00 05/13/24 16:02 Temperature Pulse Rate 88 85 84 Pulse Rate [Right Pulse Oximeter] Respiratory Rate 30 H 16 29 H Blood Pressure 177/101 H Blood Pressure [Ri ght Upper Arm] Pulse Oximetry 90 94 91 Oxygen Delivery Me thod 05/13/24 16:15 05/13/24 16:30 05/13/24 16:32 Temperature Pulse Rate 90 96 91 Pulse Rate [Right Pulse Oximeter] Respiratory Rate 23 27 H 21 Blood Pressure 160/97 H Blood Pressure [Ri ght Upper Arm] Pulse Oximetry 99 91 88 Oxygen Delivery Me thod 05/13/24 16:45 05/13/24 17:00 05/13/24 17:02 Temperature Pulse Rate 87 87 86 Pulse Rate [Right Pulse Oximeter] Respiratory Rate 25 H 19 24 Blood Pressure 145/74 H Blood Pressure [Ri ght Upper Arm] Pulse Oximetry 92 87 L 86 L Oxygen Delivery Me thod 05/13/24 17:15 05/13/24 17:30 05/13/24 17:31 Temperature Pulse Rate 83 86 85 Pulse Rate [Right Pulse Oximeter] Respiratory Rate 14 10 L 13 Blood Pressure 156/87 H Blood Pressure [Ri ght Upper Arm] Pulse Oximetry 86 L 89 90 Oxygen Delivery Me thod 05/13/24 17:45 Temperature Pulse Rate 85 Pulse Rate [Right Pulse Oximeter] Respiratory Rate 28 H Blood Pressure Blood Pressure [Ri ght Upper Arm] Pulse Oximetry 89 Oxygen Delivery Me thod <Gustavo Spangler, DO - Last Filed: 05/13/24 16:07> Vital Signs, click to edit/add: Vital Signs - 24 hr 05/13/24 12:54 05/13/24 13:01 05/13/24 13:09 Temperature 98.5 F Pulse Rate 78 76 Pulse Rate [Right Pulse Oximeter] 80 Respiratory Rate 18 21 16 Blood Pressure 129/103 H Blood Pressure [Ri ght Upper Arm] 192/121 H Pulse Oximetry 88 93 93 Oxygen Delivery Me thod Room Air 05/13/24 13:15 05/13/24 13:18 05/13/24 13:30 Temperature Pulse Rate 77 75 79 Pulse Rate [Right Pulse Oximeter] Respiratory Rate 29 H 20 14 Blood Pressure 162/82 H Blood Pressure [Ri ght Upper Arm] Pulse Oximetry 95 90 90 Oxygen Delivery Me thod 05/13/24 13:32 05/13/24 13:35 05/13/24 13:36 Temperature Pulse Rate 75 73 Pulse Rate [Right Pulse Oximeter] Respiratory Rate 23 22 18 Blood Pressure 142/124 H 133/79 Blood Pressure [Ri ght Upper Arm] Pulse Oximetry 91 93 93 Oxygen Delivery Me thod 05/13/24 13:45 05/13/24 14:00 05/13/24 14:02 Temperature Pulse Rate 76 72 72 Pulse Rate [Right Pulse Oximeter] Respiratory Rate 15 21 22 Blood Pressure 152/76 H Blood Pressure [Ri ght Upper Arm] Pulse Oximetry 94 95 94 Oxygen Delivery Me thod 05/13/24 14:03 05/13/24 14:15 05/13/24 14:30 Temperature Pulse Rate 74 73 87 Pulse Rate [Right Pulse Oximeter] Respiratory Rate 17 23 27 H Blood Pressure Blood Pressure [Ri ght Upper Arm] Pulse Oximetry 94 90 94 Oxygen Delivery Me thod 05/13/24 14:33 05/13/24 14:45 05/13/24 15:00 Temperature Pulse Rate 83 81 83 Pulse Rate [Right Pulse Oximeter] Respiratory Rate 21 30 H 16 Blood Pressure 138/77 Blood Pressure [Ri ght Upper Arm] Pulse Oximetry 92 91 91 Oxygen Delivery Me thod 05/13/24 15:02 05/13/24 15:30 05/13/24 15:31 Temperature Pulse Rate 82 87 86 Pulse Rate [Right Pulse Oximeter] Respiratory Rate 17 18 17 Blood Pressure 171/85 H 183/101 H Blood Pressure [Ri ght Upper Arm] Pulse Oximetry 90 89 89 Oxygen Delivery Me thod 05/13/24 15:32 05/13/24 16:00 05/13/24 16:02 Temperature Pulse Rate 88 85 84 Pulse Rate [Right Pulse Oximeter] Respiratory Rate 30 H 16 29 H Blood Pressure 177/101 H Blood Pressure [Ri ght Upper Arm] Pulse Oximetry 90 94 91 Oxygen Delivery Me thod 05/13/24 16:15 05/13/24 16:30 05/13/24 16:32 Temperature Pulse Rate 90 96 91 Pulse Rate [Right Pulse Oximeter] Respiratory Rate 23 27 H 21 Blood Pressure 160/97 H Blood Pressure [Ri ght Upper Arm] Pulse Oximetry 99 91 88 Oxygen Delivery Me thod 05/13/24 16:45 05/13/24 17:00 05/13/24 17:02 Temperature Pulse Rate 87 87 86 Pulse Rate [Right Pulse Oximeter] Respiratory Rate 25 H 19 24 Blood Pressure 145/74 H Blood Pressure [Ri ght Upper Arm] Pulse Oximetry 92 87 L 86 L Oxygen Delivery Me thod 05/13/24 17:15 05/13/24 17:30 05/13/24 17:31 Temperature Pulse Rate 83 86 85 Pulse Rate [Right Pulse Oximeter] Respiratory Rate 14 10 L 13 Blood Pressure 156/87 H Blood Pressure [Ri ght Upper Arm] Pulse Oximetry 86 L 89 90 Oxygen Delivery Me thod 05/13/24 17:45 Temperature Pulse Rate 85 Pulse Rate [Right Pulse Oximeter] Respiratory Rate 28 H Blood Pressure Blood Pressure [Ri ght Upper Arm] Pulse Oximetry 89 Oxygen Delivery Me thod <Alexis Hathaway MD - Last Filed: 05/13/24 18:02> Course Course ED Course: Patient signed out to Dr. Hathaway at shift change 78-year-old female with no history of asthma or lung disease was evaluated on the day shift by Dr. Spangler for a 3 day history of cough and respiratory symptoms along with some chest tightness. Patient had been hypertensive when she presented to urgent care today and so was referred here to the emergency department. She was borderline hypoxic upon presentation but actually is doing better after receiving 2 albuterol nebulizers here in the ER. She was able to pass an ambulation trial without hypoxia. Dr. Spangler discussed with her the possibility of admission, but she wants to discharge home. Workup in the ER so far is negative for any sign of CHF, acute coronary syndrome. COVID/RSV/influenza PCR is negative. Abnormal D-dimer prompted CT pulmonary angiogram. This test is currently pending. I am to follow up on the CT PA results. If there is a PE, patient will need to be admitted. Dr. Spangler suspects that there may be a small area of pneumonia visible on the lung views of the CT scan. If this is confirmed by Radiology we would start antibiotics for pneumonia. He is already written prescriptions for albuterol that the patient can use at home for wheezing. CT chest-pulmonary angiogram IMPRESSION: 1. Subcentimeter nodular and ground-glass opacities in the right lower lobe are likely infectious or inflammatory. Aspiration could be considered in the appropriate clinical setting. 2. No evidence of pulmonary embolus. 3. Dilatation of the ascending thoracic aorta to 4.1 cm, with variant arch anatomy/vascular ring about the trachea and esophagus. I discussed the CT findings with the patient. She verbalized her understanding. We will treat her possible pneumonia with doxycycline. Also discussed the abnormality of her thoracic aorta. No need for emergent surgical intervention but does need follow-up with PCP. She was previously well of her wear this and has a known aortic regurg and gets regular follow-up echoes will checkup with her PCP . In terms of her respiratory status she does have a subtle right lower lobe pneumonia. Will start her on antibiotics for that. Will also obtain a blood culture prior to starting antibiotics. At this point she is not septic. She is definitively hypoxic. On my evaluation I have sats ranging between 86 and 90%, predominantly 88% with a reliable waveform on the pulse oximeter. With this she is endorsing some chest tightness and shortness of breath. I repeated my lung exam and she does have rales predominantly in the right base but less so in the left base and significant wheezing and tight lung sounds in the apices. I will also add on another nebulizer (DuoNeb) and start her on IV steroids. With her right lower lobe pneumonia, will start her on antibiotics for community-acquired bacterial pneumonia. I recognize that this infiltrate could be indicative of a viral infection rather than bacterial. However given age, comorbidities, I think delaying antibiotics has potential for worsening her outcome. Discussed with hospitalist, Dr. Bowen, who graciously agrees to admit. Discussed the disposition with the patient and her daughter. They are in agreement that they would like her to stay. In addition to her hypoxia and overall weakness, she does have a family member at home who was recently diagnosed with cancer so they would like to avoid exposing that individual to her illness while she is at her worst. <Alexis Hathaway MD - Last Filed: 05/13/24 18:02> Vital Signs Vital signs: Initial Vital Signs Temperature 98.5 F 05/13/24 12:54 Temperature Source Temporal Artery Scan 05/13/24 12:54 Pulse Rate 80 05/13/24 12:54 Pulse Rhythm Regular 05/13/24 12:54 Respiratory Rate 18 05/13/24 12:54 Blood Pressure 192/121 H 05/13/24 12:54 Blood Pressure Mean 144 H 05/13/24 12:54 Blood Pressure Position Supine 05/13/24 12:54 Pulse Oximetry 88 05/13/24 12:54 Oxygen Delivery Method Room Air 05/13/24 12:54 Vital Signs Temperature 98.5 F 05/13/24 12:54 Pulse Rate 80 05/13/24 12:54 Respiratory Rate 18 05/13/24 12:54 Blood Pressure 192/121 H 05/13/24 12:54 Pulse Oximetry 88 05/13/24 12:54 Oxygen Delivery Method Room Air 05/13/24 12:54 Temperature 98.5 F 05/13/24 12:54 Pulse Rate 85 05/13/24 17:45 Respiratory Rate 28 H 05/13/24 17:45 Blood Pressure 156/87 H 05/13/24 17:31 Pulse Oximetry 89 05/13/24 17:45 Oxygen Delivery Method Room Air 05/13/24 12:54 <Gustavo Spangler DO - Last Filed: 05/13/24 16:07> Initial Vital Signs Temperature 98.5 F 05/13/24 12:54 Temperature Source Temporal Artery Scan 05/13/24 12:54 Pulse Rate 80 05/13/24 12:54 Pulse Rhythm Regular 05/13/24 12:54 Respiratory Rate 18 05/13/24 12:54 Blood Pressure 192/121 H 05/13/24 12:54 Blood Pressure Mean 144 H 05/13/24 12:54 Blood Pressure Position Supine 05/13/24 12:54 Pulse Oximetry 88 05/13/24 12:54 Oxygen Delivery Method Room Air 05/13/24 12:54 Vital Signs Temperature 98.5 F 05/13/24 12:54 Pulse Rate 80 05/13/24 12:54 Respiratory Rate 18 05/13/24 12:54 Blood Pressure 192/121 H 05/13/24 12:54 Pulse Oximetry 88 05/13/24 12:54 Oxygen Delivery Method Room Air 05/13/24 12:54 Temperature 98.5 F 05/13/24 12:54 Pulse Rate 85 05/13/24 17:45 Respiratory Rate 28 H 05/13/24 17:45 Blood Pressure 156/87 H 05/13/24 17:31 Pulse Oximetry 89 05/13/24 17:45 Oxygen Delivery Method Room Air 05/13/24 12:54 <Alexis Hathaway MD - Last Filed: 05/13/24 18:02> Medications Administered Medications: Discontinued Medications Generic Name Dose Route Start Last Admin Trade Name Freq PRN Reason Stop Dose Admin Albuterol 2.5 mg 05/13/24 14:09 05/13/24 14:20 Albuterol Sulfate 2.5 Mg/3 Ml Vial.George NEB 05/13/24 14:10 2.5 mg ONCE ONE Administration Albuterol 2.5 mg 05/13/24 15:58 05/13/24 16:10 Albuterol Sulfate 2.5 Mg/3 Ml Vial.George ALMAGUER 05/13/24 15:59 2.5 mg ONCE ONE Administration <Gustavo Spangler DO - Last Filed: 05/13/24 16:07> Discontinued Medications Generic Name Dose Route Start Last Admin Trade Name Jim PRN Reason Stop Dose Admin Albuterol 2.5 mg 05/13/24 14:09 05/13/24 14:20 Albuterol Sulfate 2.5 Mg/3 Ml Vial.[facility] 05/13/24 14:10 2.5 mg ONCE ONE Administration Albuterol 2.5 mg 05/13/24 15:58 05/13/24 16:10 Albuterol Sulfate 2.5 Mg/3 Ml Vial.[facility] 05/13/24 15:59 2.5 mg ONCE ONE Administration <Alexis Hathaway MD - Last Filed: 05/13/24 18:02> Medical Decision Making MDM Narrative Medical decision making narrative: patient is an 78-year-old female presenting for shortness of breath and some mild chest discomfort. She describes the chest discomfort as congestion. The differential diagnosis of shortness of breath is broad and includes common etiologies such as COPD, asthma, pneumonia, viral syndrome, etc. More serious etiologies considered include PE, CHF, coronary artery disease, pneumothorax, aortic dissection, aortic aneurysm. will do a D-dimer to look for signs of PE. BNP ordered to look for signs of CHF. Will do EKG and troponin for signs of ACS. Will do imaging eventually but the twice have image will be determined by the results of the D-dimer. This could all be a viral syndrome also. COVID/flu / RSV is ordered. Her blood pressure is better at this time and not believe she is having a hypertensive emergency. She has otherwise appeared well and my concern for aortic dissection and aortic aneurysm are very low. Will give albuterol for her mild wheezes. Patient's lab work shows a slightly elevated D-dimer even with age adjustment. Due to this CTA will be ordered. CBC shows no concerning findings. BMP shows slightly low sodium at 130 which is lower than her baseline. It is not low enough of the IM over the concerned this time. Viral swabs are negative. BNP is slightly elevated at 866 but no clear signs of heart failure order that. EKG and troponin showed no concerning findings considering how long symptoms like going on for not believe repeat troponin is necessary. we had the patient walk around and she said an 81% heart rate did jump up to about 106 unable a castillo. She states she felt more fatigued than normal but does think the albuterol treatment has helped. Will provide another treatment. I spoke to her about discharge versus admission under observation. Right now she does feel comfortable discharging home as long as the CT scan does not show anything concerning. Her daughter will stay with her and she will return if her symptoms worsen. I will provide an albuterol inhaler and spacer along with some cough medicine. <Gustavo Spangler, DO - Last Filed: 05/13/24 16:07> Lab Data Labs: Lab Results 05/13/24 05/13/24 05/13/24 Range/Units 13:01 13:05 13:18 WBC 7.65 (4.50-11.00) K/uL RBC 5.45 H (4.00-5.20) m/uL Hgb 16.1 H (12.0-16.0) gm/dL Hct 48.8 (33.0-51.0) % MCV 90 (80-100) fL MCH 30 (26-34) pg MCHC 33 (32-36) gm/dL RDW Coeff of Blaise 12.5 (11.5-15.5) % Plt Count 138 L (140-440) K/uL Neut % (Auto) 75.2 H (42.0-72.0) % Lymph % (Auto) 13.6 L (20-44) % [place] % (Auto) 10.3 (0.0-11.0) % Eos % (Auto) 0.7 (0.0-7.0) % Baso % (Auto) 0.1 (0.0-3.0) % Neut # (Auto) 5.80 (1.7-7.0) K/uL Lymph # (Auto) 1.00 (0.90-2.90) K/uL [place] # (Auto) 0.80 (0.00-0.90) K/UL Eos # (Auto) 0.05 (0.00-0.50) K/uL Baso # (Auto) 0.01 (0.00-0.30) K/uL Abs Immat Gran (auto) 0.01 (0.00-0.30) K/uL Imm/Tot Granulo (auto) 0.1 % D-Dimer Quant (PE/DVT) 0.81 H (0.00-0.50) ug/ml Sodium 130 L (135-149) mmol/L Potassium 3.9 (3.6-5.1) mmol/L Chloride 94 L (96-114) mmol/L Carbon Dioxide 28 (20-32) mmol/L Anion Gap 8 (7-15) mEq/L BUN 15 (7-30) mg/dL Creatinine 0.7 (0.5-1.5) mg/dL Estimated Creat Clear 37.12 Estimated GFR 87 ml/min Glucose 109 (60-115) mg/dL Calcium 8.6 (8.4-10.6) mg/dL Magnesium 1.7 (1.5-2.6) mg/dL NT-Pro-B Natriuret Pep 866 pg/mL SARS-CoV-2 (PCR) Negative SARS-CoV-2 (Negative) Influenza Type A (PCR) Negative PCR FLU A (Negative) Influenza Type B (PCR) Negative PCR FLU B (Negative) RSV (PCR) Negative PCR RSV (Negative) POC Troponin I 0.01 (0.01-0.04) ng/ml <Gustavo Spangler, DO - Last Filed: 05/13/24 16:07> Lab Results 05/13/24 05/13/24 05/13/24 Range/Units 13:01 13:05 13:18 WBC 7.65 (4.50-11.00) K/uL RBC 5.45 H (4.00-5.20) m/uL Hgb 16.1 H (12.0-16.0) gm/dL Hct 48.8 (33.0-51.0) % MCV 90 (80-100) fL MCH 30 (26-34) pg MCHC 33 (32-36) gm/dL RDW Coeff of Blaise 12.5 (11.5-15.5) % Plt Count 138 L (140-440) K/uL Neut % (Auto) 75.2 H (42.0-72.0) % Lymph % (Auto) 13.6 L (20-44) % [place] % (Auto) 10.3 (0.0-11.0) % Eos % (Auto) 0.7 (0.0-7.0) % Baso % (Auto) 0.1 (0.0-3.0) % Neut # (Auto) 5.80 (1.7-7.0) K/uL Lymph # (Auto) 1.00 (0.90-2.90) K/uL [place] # (Auto) 0.80 (0.00-0.90) K/UL Eos # (Auto) 0.05 (0.00-0.50) K/uL Baso # (Auto) 0.01 (0.00-0.30) K/uL Abs Immat Gran (auto) 0.01 (0.00-0.30) K/uL Imm/Tot Granulo (auto) 0.1 % D-Dimer Quant (PE/DVT) 0.81 H (0.00-0.50) ug/ml Sodium 130 L (135-149) mmol/L Potassium 3.9 (3.6-5.1) mmol/L Chloride 94 L (96-114) mmol/L Carbon Dioxide 28 (20-32) mmol/L Anion Gap 8 (7-15) mEq/L BUN 15 (7-30) mg/dL Creatinine 0.7 (0.5-1.5) mg/dL Estimated Creat Clear 37.12 Estimated GFR 87 ml/min Glucose 109 (60-115) mg/dL Calcium 8.6 (8.4-10.6) mg/dL Magnesium 1.7 (1.5-2.6) mg/dL NT-Pro-B Natriuret Pep 866 pg/mL SARS-CoV-2 (PCR) Negative SARS-CoV-2 (Negative) Influenza Type A (PCR) Negative PCR FLU A (Negative) Influenza Type B (PCR) Negative PCR FLU B (Negative) RSV (PCR) Negative PCR RSV (Negative) POC Troponin I 0.01 (0.01-0.04) ng/ml <Alexis Hathaway MD - Last Filed: 05/13/24 18:02> ECG Data Attestation: I personally reviewed and interpreted this ECG as follows: <Gustavo Spangler DO - Last Filed: 05/13/24 16:07> Prior ECG tracings: not available for review <Gustavo Spangler DO - Last Filed: 05/13/24 16:07> Interpretation: Normal sinus rhythm with a rate of 81 beats per minute, occasional PVC, no ST or T-wave abnormalities. Normal intervals, normal axis. <Gustavo Spangler DO - Last Filed: 05/13/24 16:07> Discharge Plan Discharge Clinical Impression: Pneumonia, Acute bronchospasm, Hypoxia <Gustavo Spangler DO - Last Filed: 05/13/24 16:07> Patient Disposition: Home, Self-Care <Gustavo Spangler DO - Last Filed: 05/13/24 16:07> Condition: Stable <Gustavo Spangler DO - Last Filed: 05/13/24 16:07> Instructions: Acute Bronchitis (ED) <Gustavo Spangler DO - Last Filed: 05/13/24 16:07> Additional Instructions: I believe your symptoms are all from a viral infection. Use the inhaler as needed for shortness of breath. Also provided some cough medicine. We used the inhaler make sure to use the spacer. Return for any new or worsening symptoms. At this time your oxygen was satting about 90-92% so it might not be a bad idea to get and [id number] pulse ox. If he oxygen continues to be in the 80s for an extended period of time while your hand is not moving return for re-evaluation. <Gustavo Spangler DO - Last Filed: 05/13/24 16:07> Prescriptions: New albuterol sulfate 90 mcg/actuation HFA aerosol inhaler 2 puff inhalation Q4-6H PRN (Reason: shortness of breath or wheezing) Qty: 8.5 0RF dextromethorphan-guaifenesin 20-400 mg tablet 1 tab PO Q4-6H PRN (Reason: cough) Qty: 20 0RF prednisone 20 mg tablet 40 mg PO DAILY Qty: 10 0RF No Action cyanocobalamin (vitamin B-12) 1,000 mcg capsule 1,000 mcg PO QDAY calcium carbonate [Antacid (calcium carbonate)] 200 mg calcium (500 mg) tablet,chewable 200 mg PO BID cholecalciferol (vitamin D3) 25 mcg (1,000 unit) tablet 1,000 unit PO .Every 48 Hours multivitamin Tablet 2 tab PO QAM lisinopril 20 mg tablet 20 mg PO DAILY Qty: 90 3RF omeprazole 40 mg capsule,delayed release(DR/EC) 40 mg PO DAILY Qty: 90 3RF <Gustavo Spangler DO - Last Filed: 05/13/24 16:07> Follow Up/Referrals: Abigail Castaneda MD [Primary Care Provider] - <Gustavo Spangler DO - Last Filed: 05/13/24 16:07> Stand Alone Forms: MyHealth Info Instructions <Gustavo Spangler DO - Last Filed: 05/13/24 16:07>
[2024-05-13] MEDS: ALBUTEROL SULFATE 2.5 MG/3 ML VIAL.NEB NEB ×2 (14:20→16:10)
[2024-05-13 14:22] LABS: Chloride* 94 mmol/L (96-114); Potassium* 3.9 mmol/L (3.6-5.1); Sodium* 130 mmol/L (135-149)
[2024-05-13 14:25] LABS: Anion Gap 8 mEq/L (7-15); Blood Urea Nitrogen* 15 mg/dL (7-30); Carbon Dioxide* 28 mmol/L (20-32); Creatinine* 0.7 mg/dL (0.5-1.5); Est. Creatinine Clearance* 37.12; Estimated Glomerular Filt Rate 87 ml/min; Glucose* 109 mg/dL (60-115)
[2024-05-13 14:26] LABS: Calcium* 8.6 mg/dL (8.4-10.6); Magnesium* 1.7 mg/dL (1.5-2.6)
[2024-05-13 14:49] LABS: NT Pro B Type NatriureticPept* 866 pg/mL
[2024-05-13] MEDS: cefTRIAXone 1 GM in 0.9 % SODIUM CHLORIDE Mini-bag 100 ML IVPB (18:03)
[2024-05-13] MEDS: METHYLPREDNISOLONE SOD SUCC 62.5 MG/ML (125) 40 MG IVP (18:03)
[2024-05-13] MEDS: IPRAT-ALBUT 0.5-2.5 MG/3 ML NEB 1 NEB IH (18:03)
--- NOTE | 2024-05-13 18:27 | ED.NURSE ---
Pt report given to chris DAVIES. Pt to room 276.
--- NOTE | 2024-05-13 18:44 | PM.IMHP1 ---
Hospitalist- H&P: HPI History of Present Illness Date Seen: 05/13/24 Chief complaint: High BP Narrative: Shanna Cuevas is a 78 year old female admitted through the emergency department with 3 days of dyspnea, chest tightness, nonproductive cough. Prior to that she was in her usual good state of health. She reports no previous history of lung disease. No history of asthma or COPD diagnosis. As a child she did have recurrent problems with bronchitis. She smoked briefly when she was young adult. She does not live with a smoker. She has not had a fever. She reports weakness fatigue malaise poor appetite for the last 3 days as well. In the emergency department she was evaluated and found to be hypoxic with O2 sats to the mid 80s on room air. She was noted to have wheezing. She responded somewhat to nebulizer treatments but the affect was short lived. CTA of the chest showed no pulmonary embolism. She has some ground-glass opacities in the lung base suggestive of infection. Testing for COVID, influenza, RSV was negative. Review of Systems Narrative: She reports the last 2 months have been stressful because her has been diagnosed with lymphoma and is undergoing chemotherapy and she has become his primary caregiver. 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) ?Z96.612 - Presence of left artificial shoulder joint (ICD-10) History of tubal ligation (11/10/08) ?Z98.51 - Tubal ligation status (ICD-10) History of total knee replacement (11/10/08) ?Z96.659 - Presence of unspecified artificial knee joint (ICD-10) History of total hip replacement (11/10/08) ?Z96.649 - Presence of unspecified artificial hip joint (ICD-10) History of squamous cell carcinoma in situ (SCCIS) of skin (2020) ?Z86.007 - Personal history of in-situ neoplasm of skin (ICD-10) History of primary hyperparathyroidism (11/10/08) ?Z86.39 - Personal history of other endocrine, nutritional and metabolic disease (ICD-10) History of hysterectomy (02/13/06) ?Z90.710 - Acquired absence of both cervix and uterus (ICD-10) History of cholecystectomy (11/10/08) ?Z90.49 - Acquired absence of other specified parts of digestive tract (ICD-10) History of cataract extraction (12/2015) ?Z98.49 - Cataract extraction status, unspecified eye (ICD-10) History of carpal tunnel syndrome (11/10/08) ?Z86.69 - Personal history of other diseases of the nervous system and sense organs (ICD-10) Social History (Updated 05/13/24 @ 18:57 by Silvio Bowen MD) Narrative: She lives with her on [address] in [place]. is primary healthcare power of state's attorney. Her daughter, Anahy Guzman, is secondary healthcare power of state's attorney. Remote history of smoking when she was young adult. She does not drink alcohol. Code status is full. What is your current living situation?: I presently have a place to live Problems where you live: declined to answer In the past 12 months, utilities in danger of being shut off: no In past 12 months, lack of transportation kept you from medical appts, meetings, work, or getting things needed for daily living: no In the past 12 mos, have been you worried that your food would run out before you had money to buy more?: never true Smoking Status: Never smoker Do you use any of these nicotine containing products: None How often do you have a drink containing alcohol: never How often do you have six or more drinks on one occasion: Never AUDIT-C Alcohol total score: 0 Non-prescribed substance use: denies use How often does anyone, including family, friends and others, physically hurt you: never How often does anyone, including family, friends and others, insult or talk down to you: never How often does anyone, including family, friends and others, threaten you with harm: never How often does anyone, including family, friends and others, scream or curse at you: never Meds Home Medications and Allergies Home Medications ?Medication ?Instructions ?Recorded ?Confirmed ?Type calcium carbonate (Antacid 200 mg PO BID 09/20/21 05/13/24 History (calcium carbonate)) cholecalciferol (vitamin D3) 25 1,000 unit PO .Every 48 Hours 09/20/21 05/13/24 History mcg (1,000 unit) tablet cyanocobalamin (vitamin B-12) 1,000 mcg PO QDAY 09/20/21 05/13/24 History 1,000 mcg capsule multivitamin 2 tab PO QAM 02/16/22 05/13/24 History Allergies Allergy/AdvReac Type Severity Reaction Status Date / Time propoxyphene Allergy Intermediate Nausea Verified 05/13/24 12:59 NSAIDS (Non-Steroidal AdvReac Unknown Verified 05/13/24 12:59 Anti-Inflamma Exam Narrative: Exam Narrative: She is alert and appears in no distress. She gives her own history. A dry nonproductive cough is noted. Breathing supplemental oxygen at 1.5 L with O2 sat of 90%. Eyes normal. Oropharynx with mild erythema. Neck is supple without mass or adenopathy. Respirations are notable for diffuse expiratory wheezes with marked prolongation of expiratory phase. No consolidation. Cardiovascular: S1, S2, 2/6 systolic murmur heard best at the right upper sternal border. Abdomen: Bowel sounds active. Abdomen is soft without tenderness or mass. Extremities with 1+ edema on the right which she reports is chronic. No edema on the left. Intact pedal pulses. Const: Vital Signs, click to edit/add: Vital Signs - 24 hr 05/13/24 12:54 05/13/24 13:01 05/13/24 13:09 Temperature 98.5 F Pulse Rate 78 76 Pulse Rate [Right Pulse Oximeter] 80 Respiratory Rate 18 21 16 Blood Pressure 129/103 H Blood Pressure [Ri ght Upper Arm] 192/121 H Pulse Oximetry 88 93 93 Oxygen Delivery Me thod Room Air 05/13/24 13:15 05/13/24 13:18 05/13/24 13:30 Temperature Pulse Rate 77 75 79 Pulse Rate [Right Pulse Oximeter] Respiratory Rate 29 H 20 14 Blood Pressure 162/82 H Blood Pressure [Ri ght Upper Arm] Pulse Oximetry 95 90 90 Oxygen Delivery Me thod 05/13/24 13:32 05/13/24 13:35 05/13/24 13:36 Temperature Pulse Rate 75 73 Pulse Rate [Right Pulse Oximeter] Respiratory Rate 23 22 18 Blood Pressure 142/124 H 133/79 Blood Pressure [Ri ght Upper Arm] Pulse Oximetry 91 93 93 Oxygen Delivery Me thod 05/13/24 13:45 05/13/24 14:00 05/13/24 14:02 Temperature Pulse Rate 76 72 72 Pulse Rate [Right Pulse Oximeter] Respiratory Rate 15 21 22 Blood Pressure 152/76 H Blood Pressure [Ri ght Upper Arm] Pulse Oximetry 94 95 94 Oxygen Delivery Me thod 05/13/24 14:03 05/13/24 14:15 05/13/24 14:30 Temperature Pulse Rate 74 73 87 Pulse Rate [Right Pulse Oximeter] Respiratory Rate 17 23 27 H Blood Pressure Blood Pressure [Ri ght Upper Arm] Pulse Oximetry 94 90 94 Oxygen Delivery Me thod 05/13/24 14:33 05/13/24 14:45 05/13/24 15:00 Temperature Pulse Rate 83 81 83 Pulse Rate [Right Pulse Oximeter] Respiratory Rate 21 30 H 16 Blood Pressure 138/77 Blood Pressure [Ri ght Upper Arm] Pulse Oximetry 92 91 91 Oxygen Delivery Me thod 05/13/24 15:02 05/13/24 15:30 05/13/24 15:31 Temperature Pulse Rate 82 87 86 Pulse Rate [Right Pulse Oximeter] Respiratory Rate 17 18 17 Blood Pressure 171/85 H 183/101 H Blood Pressure [Ri ght Upper Arm] Pulse Oximetry 90 89 89 Oxygen Delivery Me thod 05/13/24 15:32 05/13/24 16:00 05/13/24 16:02 Temperature Pulse Rate 88 85 84 Pulse Rate [Right Pulse Oximeter] Respiratory Rate 30 H 16 29 H Blood Pressure 177/101 H Blood Pressure [Ri ght Upper Arm] Pulse Oximetry 90 94 91 Oxygen Delivery Me thod 05/13/24 16:15 05/13/24 16:30 05/13/24 16:32 Temperature Pulse Rate 90 96 91 Pulse Rate [Right Pulse Oximeter] Respiratory Rate 23 27 H 21 Blood Pressure 160/97 H Blood Pressure [Ri ght Upper Arm] Pulse Oximetry 99 91 88 Oxygen Delivery Me thod 05/13/24 16:45 05/13/24 17:00 05/13/24 17:02 Temperature Pulse Rate 87 87 86 Pulse Rate [Right Pulse Oximeter] Respiratory Rate 25 H 19 24 Blood Pressure 145/74 H Blood Pressure [Ri ght Upper Arm] Pulse Oximetry 92 87 L 86 L Oxygen Delivery Me thod 05/13/24 17:15 05/13/24 17:30 05/13/24 17:31 Temperature Pulse Rate 83 86 85 Pulse Rate [Right Pulse Oximeter] Respiratory Rate 14 10 L 13 Blood Pressure 156/87 H Blood Pressure [Ri ght Upper Arm] Pulse Oximetry 86 L 89 90 Oxygen Delivery Me thod 05/13/24 17:45 05/13/24 18:00 05/13/24 18:02 Temperature Pulse Rate 85 81 81 Pulse Rate [Right Pulse Oximeter] Respiratory Rate 28 H 20 20 Blood Pressure 148/99 H Blood Pressure [Ri ght Upper Arm] Pulse Oximetry 89 87 L 91 Oxygen Delivery Me thod Documenting provider has reviewed patient's vital signs: yes Hospitalist - H&P: Result Labs Labs: Short CBC 05/13/24 Range/Units 13:05 WBC 7.65 (4.50-11.00) K/uL Hgb 16.1 H (12.0-16.0) gm/dL Hct 48.8 (33.0-51.0) % Plt Count 138 L (140-440) K/uL BMP 05/13/24 13:05 Sodium 130 L Potassium 3.9 Chloride 94 L Carbon Dioxide 28 BUN 15 Creatinine 0.7 Glucose [address] scan - chest: Radiologist's impression: INDICATION: Shortness of breath. TECHNIQUE: CT chest pulmonary angiogram acquired with 95 cc of Isovue 370 IV contrast. COMPARISON: Chest radiograph 05/04/2022. FINDINGS: No evidence of pulmonary embolus. Aortic atherosclerosis and tortuosity ascending thoracic aorta is dilated to 4.1 cm. Variant arch anatomy with vascular ring about the trachea and esophagus. Coronary artery calcifications. Heart size is within normal limits. No pathologic lymphadenopathy. No pleural or pericardial effusions. Small hiatal hernia. Soft tissues of the thoracic wall are unremarkable. No pneumothorax. Central airways are patent. Multiple subcentimeter nodular and ground-glass opacities are present in the right lower lobe. Mild emphysema. Lungs are otherwise clear. Cholecystectomy and postoperative changes of the stomach. No acute abnormality evident in the visualized upper abdomen. Degenerative changes of the spine. No acute or suspicious osseous abnormality. IMPRESSION: 1. Subcentimeter nodular and ground-glass opacities in the right lower lobe are likely infectious or inflammatory. Aspiration could be considered in the appropriate clinical setting. 2. No evidence of pulmonary embolus. 3. Dilatation of the ascending thoracic aorta to 4.1 cm, with variant arch anatomy/vascular ring about the trachea and esophagus. Assessment and Plan Assessment and plan (1) Hypoxia: Problem comment: Likely due to acute infection/pneumonia with associated wheezing/bronchospasm. Will treat with doxycycline and inhaled nebulizers which have been somewhat helpful. Status: Acute (2) Acute bronchospasm: Problem comment: No history of COPD or asthma diagnosis. Clinically sounds like COPD with wheezing and prolonged expiratory phase. Likely this is related to acute infection rather than a manifestation of chronic disease Status: Acute (3) Pneumonia: Problem comment: Favor viral infection over bacterial pneumonia. Doxycycline Status: Acute (4) Aortic valve regurgitation: Problem comment: Rheumatic related, mild-moderate by ECHO 12/28, seen by [facility] Fall 2012 for new onset mod AR, recommends q2Y echo, saw [facility] with Echocardiogram 01/30, stable ECHO 01/01, 11/03, 01/05, (slight worsening by echo 01/07, aortic stenosis had been mild (now [id number]) and aortic regurgitation had been mild (now moderate) Status: Acute Plan 78-year-old female admitted to the hospital with hypoxic respiratory failure associated with pneumonia and clinically significant respiratory distress with bronchospasm/wheezing. Should be admitted to the hospital for evaluation and management. Anticipate 2-3 days in the hospital for her hypoxia to resolve so she can return home. Total Time Spent Total Time Spent: Total time spent today is 60 minutes in coordination of care, review of other records, discussion with patient, daughter and other providers ongoing evaluation and management of hypoxia, pneumonia, wheezing
--- NOTE | 2024-05-13 19:01 | ED.NURSE ---
Azithromycin not started on pt, medsurg aware. Azithromycin given to medsurg.
--- NOTE | 2024-05-13 19:42 | PC.NURSE ---
Patient arrived to floor 1856, vitally stable, part of admission complete, report given to next RN.
[2024-05-13] MEDS: AZITHROMYCIN 500 MG in 0.9 % SODIUM CHLORIDE 250 ml 250 ML 255 MG IVPB (19:55)
[2024-05-13] MEDS: ENOXAPARIN 40 MG/0.4 ML INJ SUBCUT (22:17)
[2024-05-13] MEDS: SODIUM CHLORIDE 0.9 % (FLUSH) 10 ML SYRINGE 5 ML IVF (22:18)
[2024-05-13] MEDS: ACETAMINOPHEN 325 MG TABLET 650 MG PO (22:21)
--- NOTE | 2024-05-13 22:57 | PC.NURSE ---
Nursing Care Hours: [id number] Pt this shift alert and oriented, calm and cooperative. c/o headache, treated per eMAR. Required 2L NC, titrate to 1.5L. VSS. Independent in room, SB with infusions. LS. Consistent moist cough, pt having difficulty expelling mucus. Vibratory PEP given and educated on use.
[2024-05-14] VITALS (7 sets, daily range): BP systolic 127–163; BP diastolic 73–117; PULSE 61–81; RESP 18–20; TEMP 36.3–36.7; O2SAT 91–95
[2024-05-14] MEDS: guaiFENesin 100 MG/ML CUP PO ×3 (02:39→23:18)
--- NOTE | 2024-05-14 06:04 | PC.NURSE ---
End of shift [id number]: A&O pleasant and cooperative. VSS on 1.5 L NC and maintaining sats >90%. Denies pain. Reports intermittent dry cough. See eMAR for intervention. Pt deneis dizziness/lightheadedness with activity. Up w/ sba/ind in room. Using call light appropriately.
[2024-05-14] MEDS: SODIUM CHLORIDE 0.9 % (FLUSH) 10 ML SYRINGE 5 ML IVF ×2 (09:00→20:30)
[2024-05-14] MEDS: DOXYCYCLINE HYCLATE 100 MG PO ×2 (09:46→20:29)
[2024-05-14] MEDS: lisinopriL 20 MG TABLET PO (09:46)
[2024-05-14] MEDS: OMEPRAZOLE 20 MG CAPSULE DR 40 MG PO (09:46)
--- NOTE | 2024-05-14 10:25 | PM.IMPN1 ---
Progress Note: A&P Assessment and plan (1) Hypoxia: Problem details: - URI + wheezing - treating with Doxycycline, Prednisone, supplemental oxygen as needed - RT following Status: Acute (2) Acute bronchospasm: Problem details: - No history of COPD or asthma, clinical exam c/w COPD exacerbation with prolonged expiratory phase/wheezing - on Doxycycline, add Prednisone burst (5d of 20mg orally) on 05/14 Status: Acute (3) Pneumonia: Problem details: - may be viral, cover with Doxycycline Status: Acute (4) Aortic valve regurgitation: Problem details: Rheumatic related, mild-moderate by ECHO 12/28, seen by [facility] Fall 2012 for new onset mod AR, recommends q2Y echo, saw [facility] with Echocardiogram 01/30, stable ECHO 01/01, 11/03, 01/05, (slight worsening by echo 01/07, aortic stenosis had been mild (now [id number]) and aortic regurgitation had been mild (now moderate) Status: Acute Plan - per above - likely home tomorrow if continues to improve Subjective Date Seen: 05/14/24 Interval history: Edwin was admitted to the hospital last night for acute hypoxic respiratory failure in the setting of URI and possible COPD exacerbation. Currently on nebulizing treatments, doxycycline, received of dose of IV steroids in the emergency room. RT following. She continues to have intermittent coughing paroxysms with hypoxia (79%) during exertion. Intermittently tolerating RA at rest. No chest pain, tolerating po intake, no other concerns for hospitalist team this morning. Exam Narrative: Exam Narrative: GEN: Alert and oriented, sitting comfortably in bed. Intermittent coughing paroxysms during visit HEENT: EOMIs bilaterally, no scleral icterus CV: RRR, blowing systolic murmur heard best at right sternal border R: Expiratory wheezing throughout bilateral lung vargas Ext: wwp, no concerning edema Skin: No concerning skin lesions or rashes on exposed skin Neuro: Nonfocal Psych: Appropriate Const: Vital Signs, click to edit/add: Vital Signs - 24 hr 05/13/24 12:49 05/13/24 12:49 05/13/24 12:54 Temperature 98.1 F 98.1 F 98.5 F Pulse Rate Pulse Rate [Pulse Oximeter] 84 84 Pulse Rate [Right Pulse Oximeter] 80 Respiratory Rate 20 20 18 Blood Pressure Blood Pressure [Le ft Arm] 139/90 H 136/90 H Blood Pressure [Ri ght Arm] Blood Pressure [Ri ght Upper Arm] 192/121 H Pulse Oximetry 92 93 88 Oxygen Delivery Me thod Nasal Cannula Nasal Cannula Room Air Oxygen Flow Rate 2 2 05/13/24 13:01 05/13/24 13:09 05/13/24 13:15 Temperature Pulse Rate 78 76 77 Pulse Rate [Pulse Oximeter] Pulse Rate [Right Pulse Oximeter] Respiratory Rate 21 16 29 H Blood Pressure 129/103 H Blood Pressure [Le ft Arm] Blood Pressure [Ri ght Arm] Blood Pressure [Ri ght Upper Arm] Pulse Oximetry 93 93 95 Oxygen Delivery Me thod Oxygen Flow Rate 05/13/24 13:18 05/13/24 13:30 05/13/24 13:32 Temperature Pulse Rate 75 79 Pulse Rate [Pulse Oximeter] Pulse Rate [Right Pulse Oximeter] Respiratory Rate 20 14 23 Blood Pressure 162/82 H 142/124 H Blood Pressure [Le ft Arm] Blood Pressure [Ri ght Arm] Blood Pressure [Ri ght Upper Arm] Pulse Oximetry 90 90 91 Oxygen Delivery Me thod Oxygen Flow Rate 05/13/24 13:35 05/13/24 13:36 05/13/24 13:45 Temperature Pulse Rate 75 73 76 Pulse Rate [Pulse Oximeter] Pulse Rate [Right Pulse Oximeter] Respiratory Rate 22 18 15 Blood Pressure 133/79 Blood Pressure [Le ft Arm] Blood Pressure [Ri ght Arm] Blood Pressure [Ri ght Upper Arm] Pulse Oximetry 93 93 94 Oxygen Delivery Me thod Oxygen Flow Rate 05/13/24 14:00 05/13/24 14:02 05/13/24 14:03 Temperature Pulse Rate 72 72 74 Pulse Rate [Pulse Oximeter] Pulse Rate [Right Pulse Oximeter] Respiratory Rate 21 22 17 Blood Pressure 152/76 H Blood Pressure [Le ft Arm] Blood Pressure [Ri ght Arm] Blood Pressure [Ri ght Upper Arm] Pulse Oximetry 95 94 94 Oxygen Delivery Me thod Oxygen Flow Rate 05/13/24 14:15 05/13/24 14:30 05/13/24 14:33 Temperature Pulse Rate 73 87 83 Pulse Rate [Pulse Oximeter] Pulse Rate [Right Pulse Oximeter] Respiratory Rate 23 27 H 21 Blood Pressure 138/77 Blood Pressure [Le ft Arm] Blood Pressure [Ri ght Arm] Blood Pressure [Ri ght Upper Arm] Pulse Oximetry 90 94 92 Oxygen Delivery Me thod Oxygen Flow Rate 05/13/24 14:45 05/13/24 15:00 05/13/24 15:02 Temperature Pulse Rate 81 83 82 Pulse Rate [Pulse Oximeter] Pulse Rate [Right Pulse Oximeter] Respiratory Rate 30 H 16 17 Blood Pressure 171/85 H Blood Pressure [Le ft Arm] Blood Pressure [Ri ght Arm] Blood Pressure [Ri ght Upper Arm] Pulse Oximetry 91 91 90 Oxygen Delivery Me thod Oxygen Flow Rate 05/13/24 15:30 05/13/24 15:31 05/13/24 15:32 Temperature Pulse Rate 87 86 88 Pulse Rate [Pulse Oximeter] Pulse Rate [Right Pulse Oximeter] Respiratory Rate 18 17 30 H Blood Pressure 183/101 H Blood Pressure [Le ft Arm] Blood Pressure [Ri ght Arm] Blood Pressure [Ri ght Upper Arm] Pulse Oximetry 89 89 90 Oxygen Delivery Me thod Oxygen Flow Rate 05/13/24 16:00 05/13/24 16:02 05/13/24 16:15 Temperature Pulse Rate 85 84 90 Pulse Rate [Pulse Oximeter] Pulse Rate [Right Pulse Oximeter] Respiratory Rate 16 29 H 23 Blood Pressure 177/101 H Blood Pressure [Le ft Arm] Blood Pressure [Ri ght Arm] Blood Pressure [Ri ght Upper Arm] Pulse Oximetry 94 91 99 Oxygen Delivery Me thod Oxygen Flow Rate 05/13/24 16:30 05/13/24 16:32 05/13/24 16:45 Temperature Pulse Rate 96 91 87 Pulse Rate [Pulse Oximeter] Pulse Rate [Right Pulse Oximeter] Respiratory Rate 27 H 21 25 H Blood Pressure 160/97 H Blood Pressure [Le ft Arm] Blood Pressure [Ri ght Arm] Blood Pressure [Ri ght Upper Arm] Pulse Oximetry 91 88 92 Oxygen Delivery Me thod Oxygen Flow Rate 05/13/24 17:00 05/13/24 17:02 05/13/24 17:15 Temperature Pulse Rate 87 86 83 Pulse Rate [Pulse Oximeter] Pulse Rate [Right Pulse Oximeter] Respiratory Rate 19 24 14 Blood Pressure 145/74 H Blood Pressure [Le ft Arm] Blood Pressure [Ri ght Arm] Blood Pressure [Ri ght Upper Arm] Pulse Oximetry 87 L 86 L 86 L Oxygen Delivery Me thod Oxygen Flow Rate 05/13/24 17:30 05/13/24 17:31 05/13/24 17:45 Temperature Pulse Rate 86 85 85 Pulse Rate [Pulse Oximeter] Pulse Rate [Right Pulse Oximeter] Respiratory Rate 10 L 13 28 H Blood Pressure 156/87 H Blood Pressure [Le ft Arm] Blood Pressure [Ri ght Arm] Blood Pressure [Ri ght Upper Arm] Pulse Oximetry 89 90 89 Oxygen Delivery Me thod Oxygen Flow Rate 05/13/24 18:00 05/13/24 18:02 05/13/24 19:00 Temperature 98.1 F Pulse Rate 81 81 Pulse Rate [Pulse Oximeter] 84 Pulse Rate [Right Pulse Oximeter] Respiratory Rate 20 20 18 Blood Pressure 148/99 H Blood Pressure [Le ft Arm] Blood Pressure [Ri ght Arm] 158/81 H Blood Pressure [Ri ght Upper Arm] Pulse Oximetry 87 L 91 93 Oxygen Delivery Me thod Nasal Cannula Oxygen Flow Rate 2 05/13/24 19:03 05/13/24 19:18 05/13/24 19:18 Temperature Pulse Rate Pulse Rate [Pulse Oximeter] 84 Pulse Rate [Right Pulse Oximeter] Respiratory Rate 20 20 20 Blood Pressure Blood Pressure [Le ft Arm] Blood Pressure [Ri ght Arm] Blood Pressure [Ri ght Upper Arm] Pulse Oximetry 93 93 Oxygen Delivery Me thod Nasal Cannula Nasal Cannula Oxygen Flow Rate 2 2 05/13/24 23:44 05/14/24 00:30 05/14/24 02:36 Temperature 98.1 F 98.0 F Pulse Rate Pulse Rate [Pulse Oximeter] 72 65 Pulse Rate [Right Pulse Oximeter] Respiratory Rate 20 20 20 Blood Pressure Blood Pressure [Le ft Arm] 112/66 Blood Pressure [Ri ght Arm] 127/73 Blood Pressure [Ri ght Upper Arm] Pulse Oximetry 93 93 91 Oxygen Delivery Me thod Nasal Cannula Nasal Cannula Nasal Cannula Oxygen Flow Rate 1.5 1.5 1.5 05/14/24 07:00 05/14/24 07:00 05/14/24 07:00 Temperature 97.7 F Pulse Rate Pulse Rate [Pulse Oximeter] 72 68 Pulse Rate [Right Pulse Oximeter] Respiratory Rate 20 20 20 Blood Pressure Blood Pressure [Le ft Arm] 148/105 H Blood Pressure [Ri ght Arm] Blood Pressure [Ri ght Upper Arm] Pulse Oximetry 95 95 Oxygen Delivery Me thod Nasal Cannula Nasal Cannula Oxygen Flow Rate 1.5 1.5 Labs Labs: Laboratory Results - last 24 hr 05/13/24 05/13/24 05/13/24 13:01 13:05 13:18 WBC 7.65 RBC 5.45 H Hgb 16.1 H Hct 48.8 MCV 90 MCH 30 MCHC 33 RDW Coeff of Blaise 12.5 Plt Count 138 L Neut % (Auto) 75.2 H Lymph % (Auto) 13.6 L [place] % (Auto) 10.3 Eos % (Auto) 0.7 Baso % (Auto) 0.1 Neut # (Auto) 5.80 Lymph # (Auto) 1.00 [place] # (Auto) 0.80 Eos # (Auto) 0.05 Baso # (Auto) 0.01 Abs Immat Gran (auto) 0.01 Imm/Tot Granulo (auto) 0.1 D-Dimer Quant (PE/DVT) 0.81 H Sodium 130 L Potassium 3.9 Chloride 94 L Carbon Dioxide 28 Anion Gap 8 BUN 15 Creatinine 0.7 Estimated Creat Clear 37.12 Estimated GFR 87 Glucose 109 Calcium 8.6 Magnesium 1.7 NT-Pro-B Natriuret Pep 866 SARS-CoV-2 (PCR) Negative SARS-CoV-2 Influenza Type A (PCR) Negative PCR FLU A Influenza Type B (PCR) Negative PCR FLU B RSV (PCR) Negative PCR RSV POC Troponin I 0.01
--- NOTE | 2024-05-14 11:19 | RESP.RT ---
Pt seen. Eating lunch. BBS with scattered tight expiratory wheezing, more pronounced in upper lobes. PT on RA at rest. Requiring some oxygen with ambulation. 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 Spoke with pt about moving around in room, sitting in chair and doing some light cardiac calisthenics. She was familiar with these from her exercise class and agrees to do them. Will hold on aerobika and IS until tomorrow, as they may be contributing to tight expiratory wheezing.
[2024-05-14] MEDS: predniSONE 20 MG TABLET PO (12:24)
[2024-05-14] MEDS: ALBUTEROL SULFATE 2.5 MG/3 ML VIAL.NEB NEB ×2 (16:06→20:30)
--- NOTE | 2024-05-14 18:41 | PC.NURSE ---
Nursing Care Hours: 2013-2360 Pt this shift calm and cooperative, alert and oriented. No c/o pain, SOB, or nausea. titrate O2 from 1.5L NC to RA, sats remain above 90%. Attempt to ambulate nieves without O2 about 150ft, desat to 79%, pt SOB and states feeling lightheaded. Took about 90 seconds to recover on RA to get back to 92%. Later in shift, pt attempt to walk nieves with daughter. 2L O2 NC started and pt desat to 84%. No O2 required for short distance ambulation to bathroom. Field Crop Harvest Contractor encouraged pt to do activities sitting like brushing teeth and getting ready for day and allow sufficient rest periods as pt likes to stay moving. Guaifenesin given for persistent cough. PRN neb given for chest tightness and wheezing. Chamomile tea with mint given at end of shift for persistent cough, effective. HTN without symptoms. Pt showered this shift.
[2024-05-14] MEDS: ENOXAPARIN 40 MG/0.4 ML INJ SUBCUT (20:29)
[2024-05-14] MEDS: ACETAMINOPHEN 325 MG TABLET 650 MG PO (23:18)
[2024-05-15 03:00] VITALS: BP 139/83; PULSE 67; RESP 16; TEMP 36.4; O2SAT 94
[2024-05-15] MEDS: guaiFENesin 100 MG/ML CUP PO (04:58)
--- NOTE | 2024-05-15 06:01 | PC.NURSE ---
End of shift report [id number]: Alert and oriented x 4. Denies and chest pain. Patient does report shortness of breath with activity but does resolve with rest. Patient remained on room air throughout the entirety of the shift and able to maintain sats at 90-94%. Lung sounds with expiratory wheezing, patient continues to feel tight in her chest. Intermittent cough that does have periods of intense coughing that causes chest wall discomfort. PRN Robitussin administered per orders and moderately effective for cough. Patient is able to expectorate a scant amount of white/yellow sputum. PRN albuterol nebulizers administered per patient request with minimal relief of wheezing with use. Patient reports her activity tolerance is improved from the previous day but she is still feeling really tight in her chest and audible wheezing. Independent with ambulation and transfers.
[2024-05-15 06:38] LABS: Basophils Absolute Auto 0.02 K/uL (0.00-0.30); Basophils Percent Auto 0.3 % (0.0-3.0); Eosinophils Absolute Auto 0.07 K/uL (0.00-0.50); Eosinophils Percent Auto 1.1 % (0.0-7.0); Hematocrit 41.3 % (33.0-51.0); Hemoglobin* 13.8 gm/dL (12.0-16.0); Immature Granulocytes Abs Auto 0.01 K/uL (0.00-0.30); Immature Granulocytes Pct Auto 0.2 %; Lymphocytes Absolute Auto 2.54 K/uL (0.90-2.90); Lymphocytes Percent Auto 38.3 % (20-44); Mean Corpuscular HGB Conc 33 gm/dL (32-36); Mean Corpuscular Hemoglobin 30 pg (26-34); Mean Corpuscular Volume 89 fL (80-100); Monocytes Percent Auto 10.7 % (0.0-11.0); Neutrophils Absolute Auto 3.29 K/uL (1.7-7.0); Neutrophils Percent Auto 49.4 % (42.0-72.0); Platelet Count* 130 K/uL (140-440); RDW Coefficient of Variation % 12.9 % (11.5-15.5); Red Blood Count 4.62 m/uL (4.00-5.20); White Blood Count* 6.64 K/uL (4.50-11.00)
[2024-05-15 06:44] LABS: Chloride* 99 mmol/L (96-114); Potassium* 3.9 mmol/L (3.6-5.1); Sodium* 133 mmol/L (135-149)
[2024-05-15 06:47] LABS: Blood Urea Nitrogen* 16 mg/dL (7-30); Creatinine* 0.6 mg/dL (0.5-1.5); Est. Creatinine Clearance* 37.12; Estimated Glomerular Filt Rate 91 ml/min
[2024-05-15 06:48] LABS: Anion Gap 3 mEq/L (7-15); Calcium* 8.2 mg/dL (8.4-10.6); Carbon Dioxide* 31 mmol/L (20-32); Glucose* 75 mg/dL (60-115)
[2024-05-15 06:59] LABS: Slide Review Reflex No
[2024-05-15 07:00] VITALS: BP 162/86; PULSE 58; RESP 20; TEMP 36.4; O2SAT 95
[2024-05-15] MEDS: predniSONE 20 MG TABLET PO (07:56)
[2024-05-15] MEDS: OMEPRAZOLE 20 MG CAPSULE DR 40 MG PO (07:56)
[2024-05-15] MEDS: lisinopriL 20 MG TABLET PO (07:56)
[2024-05-15] MEDS: DOXYCYCLINE HYCLATE 100 MG PO ×2 (09:09→21:03)
--- NOTE | 2024-05-15 10:35 | PM.IMPN1 ---
Progress Note: A&P Assessment and plan (1) Hypoxia: Problem details: - URI + wheezing - treating with Doxycycline, Prednisone, supplemental oxygen as needed - RT following - resolved at rest, monitor with ambulation Status: Resolved (2) Acute bronchospasm: Problem details: - No history of COPD or asthma, clinical exam c/w COPD exacerbation with prolonged expiratory phase/wheezing - on Doxycycline, continue Prednisone burst (5d of 20mg orally) on 05/14 - added scheduled DuoNebs alternating with albuterol nebs - deescalate with improvement Status: Acute (3) Pneumonia: Problem details: - may be viral, cover with Doxycycline - Mucinex and Tessalon Perles p.r.n. - aerobika and incentive spirometry given coarse breath sounds Status: Acute (4) Aortic valve regurgitation: Problem details: Rheumatic related, mild-moderate by ECHO 12/28, seen by [facility] Fall 2012 for new onset mod AR, recommends q2Y echo, saw [facility] with Echocardiogram 01/30, stable ECHO 01/01, 11/03, 01/05, (slight worsening by echo 01/07, aortic stenosis had been mild (now [id number]) and aortic regurgitation had been mild (now moderate) Status: Acute Plan - per above - possibly home over the weekend pending ongoing clinical improvement Time Spent With Patient Total time spent: Today I spent 45 minutes seeing the patient, discussing the patient with ER staff, reviewing Expanse and Epic notes/diagnostics, discussing the care plan with our team that includes social work, PT/OT, pharmacy, RT, detention and documenting my impressions and plan in the medical record. Subjective Date Seen: 05/15/24 Interval history: Patient is seen sitting up in a chair. Reports feeling slightly better. Feels as though her congestion and cough have loosened but still unable to bring anything up. Remains on room air. Ambulation is still more taxing. Denies chest pain. Denies headache or dizziness. Tolerating orals without nausea or vomiting. Remains afebrile. Reports nebs are helpful but not long acting. Exam Narrative: Exam Narrative: PHYSICAL EXAM General: Pleasant, conversant, NAD HEENT: Normocephalic, atraumatic, sclera white, EOMI, oral mucosa moist Cardiovascular: RRR, S1S2. Trace pitting edema right lower extremity, chronic Pulmonary: Coarse breath sounds throughout with expiratory wheezes noted. Upper airway noise appreciated. No dyspnea on room air Neurological: Alert, answering questions appropriately, cranial nerves intact, no focal findings Extremities: No gross joint deformity or swelling. AROMI. Neurovascularly intact Skin: Warm, dry. Const: Vital Signs, click to edit/add: Vital Signs - 24 hr 05/14/24 11:00 05/14/24 15:00 05/14/24 15:00 Temperature Pulse Rate [Pulse Oximeter] 69 69 Respiratory Rate 18 18 18 Blood Pressure [Le ft Arm] Blood Pressure [Ri ght Arm] 151/78 H Pulse Oximetry 94 92 Oxygen Delivery Me thod Room Air Room Air 05/14/24 15:00 05/14/24 19:00 05/14/24 23:00 Temperature 97.7 F 97.5 F L Pulse Rate [Pulse Oximeter] 68 81 61 Respiratory Rate 18 20 20 Blood Pressure [Le ft Arm] 145/117 H Blood Pressure [Ri ght Arm] 163/87 H Pulse Oximetry 92 91 Oxygen Delivery Mo thod Room Air Room Air 05/14/24 23:00 05/14/24 23:00 05/15/24 03:00 Temperature 97.3 F L 97.6 F Pulse Rate [Pulse Oximeter] 61 67 Respiratory Rate 20 20 16 Blood Pressure [Le ft Arm] 154/73 H 139/83 Blood Pressure [Ri ght Arm] Pulse Oximetry 93 93 94 Oxygen Delivery Mo thod Room Air Room Air Room Air 05/15/24 07:00 05/15/24 07:00 05/15/24 07:00 Temperature 97.6 F Pulse Rate [Pulse Oximeter] 58 L 58 L Respiratory Rate 20 20 Blood Pressure [Le ft Arm] Blood Pressure [Ri ght Arm] 162/86 H Pulse Oximetry 95 95 Oxygen Delivery Mo thod Room Air Room Air Labs Labs: Laboratory Results - last 24 hr 05/15/24 06:04 WBC 6.64 RBC 4.62 Hgb 13.8 Hct 41.3 MCV 89 MCH 30 MCHC 33 RDW Coeff of Blaise 12.9 Plt Count 130 L Neut % (Auto) 49.4 Lymph % (Auto) 38.3 [place] % (Auto) 10.7 Eos % (Auto) 1.1 Baso % (Auto) 0.3 Neut # (Auto) 3.29 Lymph # (Auto) 2.54 [place] # (Auto) 0.70 Eos # (Auto) 0.07 Baso # (Auto) 0.02 Abs Immat Gran (auto) 0.01 Imm/Tot Granulo (auto) 0.2 Sodium 133 L Potassium 3.9 Chloride 99 Carbon Dioxide 31 Anion Gap 3 L BUN 16 Creatinine 0.6 Estimated Creat Clear 37.12 Estimated GFR 91 Glucose 75 Calcium 8.2 L
[2024-05-15] MEDS: BENZONATATE 100 MG CAPSULE PO (10:46)
[2024-05-15] MEDS: guaiFENesin 600 MG TAB.ER.12H PO ×2 (10:46→21:03)
[2024-05-15] MEDS: IPRAT-ALBUT 0.5-2.5 MG/3 ML NEB 1 NEB IH ×2 (10:47→15:58)
[2024-05-15 11:00] VITALS: BP 179/94; PULSE 69; RESP 20; TEMP 36.6; O2SAT 93
[2024-05-15] MEDS: ALBUTEROL SULFATE 2.5 MG/3 ML VIAL.NEB NEB ×3 (12:50→21:04)
[2024-05-15] MEDS: SODIUM CHLORIDE 0.9 % (FLUSH) 10 ML SYRINGE 5 ML IVF (12:50)
--- NOTE | 2024-05-15 14:02 | PC.NURSE ---
End of Shift Note: Patient has had a good day. Up to the chair for meals and has been ambulating in her room. We have discussed about taking a shower but she had visitors and now wants to nap. She will let me know when she wants to shower. Cough has been better since we added tessalon pearls and mucinex this am. Will continue to monitor until next shift arrives.
[2024-05-15 15:00] VITALS: BP 130/78; PULSE 70; RESP 18; TEMP 36.7; O2SAT 93
[2024-05-15 19:00] VITALS: BP 174/94; PULSE 65; RESP 16; TEMP 36.3; O2SAT 90; O2SAT 95
[2024-05-15] MEDS: ENOXAPARIN 40 MG/0.4 ML INJ SUBCUT (21:03)
[2024-05-16] VITALS (9 sets, daily range): BP systolic 153–173; BP diastolic 62–101; PULSE 69–79; RESP 18–22; TEMP 36.1–36.5; O2SAT 92–95
--- NOTE | 2024-05-16 00:39 | PC.NURSE ---
ambulating independently as tolerated by the patient. R posterior bases with wheeze. Productive cough at times. Appetite is reassuring. Call light within reach. Mitzi DAVIES BSN
[2024-05-16] MEDS: ALBUTEROL SULFATE 2.5 MG/3 ML VIAL.NEB NEB ×6 (01:13→20:31)
[2024-05-16] MEDS: IPRAT-ALBUT 0.5-2.5 MG/3 ML NEB 1 NEB IH ×5 (01:14→22:41)
--- NOTE | 2024-05-16 06:30 | PC.NURSE ---
[id number]: Patient pleasant and cooperative. Independent in room. SOB w/activity but patient acknowledges it's getting better. O2 92-94 RA. Afebrile. Intermittent, productive cough. Denies pain/N/V.CP. Appeared to rest well during noc.
[2024-05-16] MEDS: BENZONATATE 100 MG CAPSULE PO ×3 (06:46→22:41)
[2024-05-16] MEDS: predniSONE 20 MG TABLET PO ×2 (07:44→11:37)
--- NOTE | 2024-05-16 09:49 | RESP.RT ---
pt seen this AM. reports that she feels worse. BBS with expiratory wheezing with prolonged expiratory phase. Continue with nebs, hold aerobika therapy. She has a very tight harsh NEWSPAPER CORRESPONDENT cough at this time. Continue to monitor.
[2024-05-16] MEDS: OMEPRAZOLE 20 MG CAPSULE DR 40 MG PO (09:56)
[2024-05-16] MEDS: DOXYCYCLINE HYCLATE 100 MG PO ×2 (09:57→22:40)
[2024-05-16] MEDS: guaiFENesin 600 MG TAB.ER.12H PO ×2 (09:57→22:40)
[2024-05-16] MEDS: SODIUM CHLORIDE 0.9 % (FLUSH) 10 ML SYRINGE 5 ML IVF ×2 (09:58→22:40)
[2024-05-16] MEDS: lisinopriL 20 MG TABLET PO (09:58)
--- NOTE | 2024-05-16 16:09 | PM.IMPN1 ---
Progress Note: A&P Assessment and plan (1) Hypoxia: Problem details: - URI + wheezing - treating with Doxycycline, Prednisone, supplemental oxygen as needed - RT following - resolved at rest, monitor with ambulation Status: Resolved (2) Acute bronchospasm: Problem details: - No history of COPD or asthma, clinical exam c/w COPD exacerbation with prolonged expiratory phase/wheezing - on Doxycycline, continue Prednisone burst (5d of 20mg orally) on 05/14 - added scheduled DuoNebs alternating with albuterol nebs - deescalate with improvement - 05/16 increase prednisone to 40 mg daily Status: Acute (3) Pneumonia: Problem details: - may be viral, cover with Doxycycline - Mucinex and Tessalon Perles p.r.n. - aerobika and incentive spirometry given coarse breath sounds - 05/16 chest x-ray today unremarkable Status: Acute (4) Aortic valve regurgitation: Problem details: Rheumatic related, mild-moderate by ECHO 12/28, seen by [facility] Fall 2012 for new onset mod AR, recommends q2Y echo, saw [facility] with Echocardiogram 01/30, stable ECHO 01/01, 11/03, 01/05, (slight worsening by echo 01/07, aortic stenosis had been mild (now [id number]) and aortic regurgitation had been mild (now moderate) Status: Chronic Time Spent With Patient Total time spent: Today I spent 35 minutes seeing the patient and her daughter, reviewing Expanse and Epic notes/diagnostics, discussing the care plan with our team that includes social work, PT/OT, pharmacy, RT, intermediate and documenting my impressions and plan in the medical record. Subjective Time Seen by Provider: 10:46 Date Seen: 05/16/24 Interval history: Shanna feels more chest fullness and congestion today. She denies aspiration, but notes that she has a long history of things getting stuck when she swallows and having to do a lot of swallowing to get them down. 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 She is coughing and notes that she is not able to bring anything up. Exam Narrative: Exam Narrative: General: No acute distress. Awake, alert, oriented x3. No pallor. No jaundice. Talkative. Oropharynx: Clear. Mucous membranes moist. Cardiovascular: Regular rate and rhythm. No murmurs, gallops, or rubs. Respiratory: Tight, expiratory wheezes throughout, crackle in left lower lung field. Abdomen: Bowel sounds present. Soft, nondistended, nontender. Extremities: No lower extremity edema. Const: Vital Signs, click to edit/add: Vital Signs - 24 hr 05/15/24 19:00 05/15/24 19:00 05/16/24 01:09 Temperature 97.3 F L 97.6 F Pulse Rate [Pulse Oximeter] 65 74 Respiratory Rate 16 20 Blood Pressure [Le ft Arm] 174/94 H Blood Pressure [Ri ght Arm] 157/77 H Pulse Oximetry 95 94 Oxygen Delivery Me thod Room Air Fraction of Inspir ed Oxygen 40 05/16/24 01:18 05/16/24 06:23 05/16/24 07:00 Temperature 97.7 F Pulse Rate [Pulse Oximeter] 72 Respiratory Rate 20 22 20 Blood Pressure [Le ft Arm] 173/98 H Blood Pressure [Ri ght Arm] Pulse Oximetry 94 92 94 Oxygen Delivery Me thod Room Air Room Air Room Air Fraction of Inspir ed Oxygen 05/16/24 07:00 05/16/24 07:00 05/16/24 11:00 Temperature 97 F L 97.6 F Pulse Rate [Pulse Oximeter] 73 73 69 Respiratory Rate 20 20 20 Blood Pressure [Le ft Arm] Blood Pressure [Ri ght Arm] 172/81 H 162/86 H Pulse Oximetry 94 93 Oxygen Delivery Me thod Room Air Room Air Fraction of Inspir ed Oxygen 05/16/24 15:00 05/16/24 15:00 Temperature Pulse Rate [Pulse Oximeter] 69 Respiratory Rate 20 Blood Pressure [Le ft Arm] Blood Pressure [Ri ght Arm] Pulse Oximetry 93 Oxygen Delivery Me thod Room Air Fraction of Inspir ed Oxygen Labs Labs: Ordering Physician: Jumana Bynum M.D. Date of Service: 05/16/24 Procedure(s): XR chest 1V portable Accession Number(s): [id number] cc: Abigail Castaneda M.D.; Jumana Bynum M.D.~ For Patients: As a result of the Cures Act, medical imaging exams and procedure reports are released immediately into your electronic medical record. You may view this report before your referring provider. If you have questions, please contact your health care provider. INDICATION: Increased congestion. Left lower lobe crackles. TECHNIQUE: Chest 1 view. COMPARISON: CTA chest 05/13/2024 and chest radiograph 05/04/2022. FINDINGS: Cardiac silhouette size is normal. Mediastinal silhouette unchanged and corresponds to the tortuous and mildly dilated thoracic aorta seen on recent CTA. There is no focal pulmonary opacity, pleural effusion or pneumothorax. Partially visualized left shoulder arthroplasty. IMPRESSION: No reliable evidence of infection or edema. Dictated by Lynne Nicholas MD @ 05/16/2024 12:52:21 PM (Electronically Signed)
--- NOTE | 2024-05-16 19:07 | PC.NURSE ---
Shift Note : Pt friendly and cooperative. States she feels crummier today than she has the past day or two. BP's continue to be mildly hypertensive despite scheduled Lisinopril. Pt denies pain, but does c/o chest tightness when she coughs. She is ambulating throughout her room and in the nieves with a mask frequently. Per RT, pt has not used aerobika today although she is TCDB. She is eating about 75% of her meal trays, voiding, and had a BM today. Daughter in to visit this afternoon. Both daughter and pt were very concerned about her CXR. Liquid Chlorine Operator discussed this with Dr. Bynum who confirmed CXR was unremarkable.
[2024-05-16] MEDS: ENOXAPARIN 40 MG/0.4 ML INJ SUBCUT (22:40)
[2024-05-16] MEDS: ACETAMINOPHEN 325 MG TABLET 650 MG PO (22:41)
[2024-05-17] MEDS: ALBUTEROL SULFATE 2.5 MG/3 ML VIAL.NEB NEB ×3 (01:05→09:12)
[2024-05-17] MEDS: IPRAT-ALBUT 0.5-2.5 MG/3 ML NEB 1 NEB IH ×2 (04:27→11:15)
[2024-05-17 04:29] VITALS: BP 169/90; PULSE 66; RESP 20; TEMP 36.8; O2SAT 93
--- NOTE | 2024-05-17 05:15 | PC.NURSE ---
[id number]: Patient pleasant, talkative, and cooperative. Independent. Intermittent, harsh cough producing small amounts of sputum. Afebrile. O2 sats>90% RA. Appeared to rest well during noc.
[2024-05-17 07:00] VITALS: BP 159/109; PULSE 82; RESP 18; TEMP 36.4; O2SAT 92
[2024-05-17] MEDS: OMEPRAZOLE 20 MG CAPSULE DR 40 MG PO (09:11)
[2024-05-17] MEDS: predniSONE 20 MG TABLET 40 MG PO (09:11)
[2024-05-17] MEDS: guaiFENesin 600 MG TAB.ER.12H PO (09:11)
[2024-05-17] MEDS: DOXYCYCLINE HYCLATE 100 MG PO (09:11)
[2024-05-17] MEDS: lisinopriL 20 MG TABLET PO (09:11)
[2024-05-17] MEDS: SODIUM CHLORIDE 0.9 % (FLUSH) 10 ML SYRINGE 5 ML IVF (09:12)
--- NOTE | 2024-05-17 10:53 | P.DS_ITS ---
DS: Providers Provider Time Seen by Provider: 09:00 Date Seen: 05/17/24 Date of admission: 05/13/24 18:56 Primary care physician: Abigail Castaneda MD Admitting Clinician: Silvio Bowen MD Consults: 05/13/24 18:56 Consult to Respiratory Therapy [CONS] Routine Comment: Reason(s) for RT Consult:: Consult Attending Physician on discharge: Jumana Bynum MD Date of Discharge: 05/17/24 DS: Diagnosis Discharge Diagnosis (1) Hypoxia: Status: Resolved Problem details: - URI + wheezing - treating with Doxycycline, Prednisone, supplemental oxygen as needed - RT following - resolved at rest, monitor with ambulation (2) Acute bronchospasm: Status: Acute Problem details: - No history of COPD or asthma, clinical exam c/w COPD exacerbation with prolonged expiratory phase/wheezing - on Doxycycline, continue Prednisone burst (5d of 20mg orally) on 05/14 - added scheduled DuoNebs alternating with albuterol nebs - deescalate with improvement - 05/16 increase prednisone to 40 mg daily - 05/17 feeling much better, less tight, less wheezy, d/c home (3) Pneumonia: Status: Acute Problem details: - may be viral, cover with Doxycycline - Mucinex and Tessalon Perles p.r.n. - aerobika and incentive spirometry given coarse breath sounds - 05/16 chest x-ray today unremarkable (4) Aortic valve regurgitation: Status: Chronic Problem details: Rheumatic related, mild-moderate by ECHO 12/28, seen by [facility] Fall 2012 for new onset mod AR, recommends q2Y echo, saw [facility] with Echocardiogram 01/30, stable ECHO 01/01, 11/03, 01/05, (slight worsening by echo 01/07, aortic stenosis had been mild (now kewl-eo-dvtkyuic) and aortic regurgitation had been mild (now moderate) (5) Thoracic ascending aortic aneurysm: Status: Acute Problem details: - 05/13/2024 CT chest: Dilatation of the ascending thoracic aorta to 4.1 cm, with variant arch anatomy/vascular ring about the trachea and esophagus. 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 DS: Summary Hospital Course Hospital Course: Per H&P: Shanna Cuevas is a 78 year old female admitted through the emergency department with 3 days of dyspnea, chest tightness, nonproductive cough. Prior to that she was in her usual good state of health. She reports no previous history of lung disease. No history of asthma or COPD diagnosis. As a child she did have recurrent problems with bronchitis. She smoked briefly when she was young adult. She does not live with a smoker. She has not had a fever. She reports weakness fatigue malaise poor appetite for the last 3 days as well. In the emergency department she was evaluated and found to be hypoxic with O2 sats to the mid 80s on room air. She was noted to have wheezing. She responded somewhat to nebulizer treatments but the affect was short lived. CTA of the chest showed no pulmonary embolism. She has some ground-glass opacities in the lung base suggestive of infection. Testing for COVID, influenza, RSV was nega tive. Please see diagnoses above for more details. Shanna was able to wean off oxygen over the next day, but continued to have coughing paroxysms, then developed increased chest congestion. CXR on hospital day 4 was unremarkable. Increased dose of prednisone and a change to her neb regimen was helpful and she was feeling much better today, stable off oxygen and ready for discharge home. Time Spent with Patient Time attestation: Total time spent providing and/or coordinating discharge services: Today I spent 40 minutes discharging the patient which included seeing the patient, reviewing [facility] and [facility] notes/diagnostics/labs, discussing the care plan with our care team that includes social work, PT/OT, pharmacy, RT, [facility] and documenting my impressions and plan in the medical record. Exam Narrative: Exam Narrative: General: No acute distress. Awake, alert, oriented x3. No pallor. No jaundice. Talkative. Oropharynx: Clear. Mucous membranes moist. Cardiovascular: Regular rate and rhythm. No murmurs, gallops, or rubs. Respiratory: Improved air movement today, a few scattered expiratory wheezes, no crackles. Abdomen: Bowel sounds present. Soft, nondistended, nontender. Extremities: No lower extremity edema. Const: Vital Signs, click to edit/add: Vital Signs - 24 hr 05/16/24 11:00 05/16/24 15:00 05/16/24 15:00 Temperature 97.6 F Pulse Rate [Pulse Oximeter] 69 69 Respiratory Rate 20 20 Blood Pressure [Le ft Arm] Blood Pressure [Ri ght Arm] 162/86 H Pulse Oximetry 93 93 Oxygen Delivery Me thod Room Air Room Air 05/16/24 15:00 05/16/24 20:19 05/16/24 22:46 Temperature 96.9 F L 97.5 F L 97.7 F Pulse Rate [Pulse Oximeter] 69 79 79 Respiratory Rate 20 18 20 Blood Pressure [Le ft Arm] 157/82 H Blood Pressure [Ri ght Arm] 154/62 H 153/101 H Pulse Oximetry 93 95 95 Oxygen Delivery Me thod Room Air Room Air Room Air 05/16/24 23:00 05/17/24 04:29 Temperature 98.2 F Pulse Rate [Pulse Oximeter] 66 Respiratory Rate 20 20 Blood Pressure [Le ft Arm] 169/90 H Blood Pressure [Ri ght Arm] Pulse Oximetry 95 93 Oxygen Delivery Me thod Room Air Room Air DS: Data Data Completed and Pending Completed studies during hospitalization: 05/13/2024 EKG: Sinus rhythm with occasional premature ventricular complexes, 81 beats per minute. Ordering Physician: Gustavo Spangler D.O. Date of Service: 05/13/24 Procedure(s): CT angio chest PE protocol Accession Number(s): [id number] cc: Gustavo Spangler D.O.; Abigail Castaneda M.D.~ For Patients: As a result of the Cures Act, medical imaging exams and procedure reports are released immediately into your electronic medical record. You may view this report before your referring provider. If you have questions, please contact your health care provider. INDICATION: Shortness of breath. TECHNIQUE: CT chest pulmonary angiogram acquired with 95 cc of Isovue 370 IV contrast. COMPARISON: Chest radiograph 05/04/2022. FINDINGS: No evidence of pulmonary embolus. Aortic atherosclerosis and tortuosity ascending thoracic aorta is dilated to 4.1 cm. Variant arch anatomy with vascular ring about the trachea and esophagus. Coronary artery calcifications. Heart size is within normal limits. No pathologic lymphadenopathy. No pleural or pericardial effusions. Small hiatal hernia. Soft tissues of the thoracic wall are unremarkable. No pneumothorax. Central airways are patent. Multiple subcentimeter nodular and ground-glass opacities are present in the right lower lobe. Mild emphysema. Lungs are otherwise clear. Cholecystectomy and postoperative changes of the stomach. No acute abnormality evident in the visualized upper abdomen. Degenerative changes of the spine. No acute or suspicious osseous abnormality. IMPRESSION: 1. Subcentimeter nodular and ground-glass opacities in the right lower lobe are likely infectious or inflammatory. Aspiration could be considered in the appropriate clinical setting. 2. No evidence of pulmonary embolus. 3. Dilatation of the ascending thoracic aorta to 4.1 cm, with variant arch anatomy/vascular ring about the trachea and esophagus. Dictated by Kole Back MD @ 05/13/2024 4:50:25 PM Please note that all CT scans at this facility use dose modulation, iterative reconstruction, and/or weight-based dosing when appropriate to reduce radiation dose to as low as reasonably achievable. Dictated by: Kole Back MD @ 05/13/2024 16:50:44 (Electronically Signed) Ordering Physician: Jumana Bynum M.D. Date of Service: 05/16/24 Procedure(s): XR chest 1V portable Accession Number(s): [id number] cc: Abigail Castaneda M.D.; Jumana Bynum M.D.~ For Patients: As a result of the Cures Act, medical imaging exams and procedure reports are released immediately into your electronic medical record. You may view this report before your referring provider. If you have questions, please contact your health care provider. INDICATION: Increased congestion. Left lower lobe crackles. TECHNIQUE: Chest 1 view. COMPARISON: CTA chest 05/13/2024 and chest radiograph 05/04/2022. FINDINGS: Cardiac silhouette size is normal. Mediastinal silhouette unchanged and corresponds to the tortuous and mildly dilated thoracic aorta seen on recent CTA. There is no focal pulmonary opacity, pleural effusion or pneumothorax. Partially visualized left shoulder arthroplasty. IMPRESSION: No reliable evidence of infection or edema. Dictated by Lynne Nicholas MD @ 05/16/2024 12:52:21 PM (Electronically Signed) Labs on day of discharge: Preliminary micro results at discharge 05/13/24 18:00 Blood Culture - Preliminary Blood NO GROWTH AFTER 72 HOURS Discharge Plan Discharge Disposition: Home, Self-Care Date of Admission: 05/13/24 18:56 Attending Provider on Discharge: Jumana Bynum Primary Care Provider: Abigail Castaneda Condition: Stable Anticipated Discharge Date/Time: 05/17/24 11:03 Discharge Medications: New albuterol sulfate 90 mcg/actuation HFA aerosol inhaler 2 puff inhalation Q4-6H PRN (Reason: shortness of breath or wheezing) Qty: 8.5 0RF dextromethorphan-guaifenesin 20-400 mg tablet 1 tab PO Q4-6H PRN (Reason: cough) Qty: 20 0RF prednisone 20 mg tablet 40 mg PO DAILY Qty: 10 0RF albuterol sulfate 2.5 mg /3 mL (0.083 %) Solution For Nebulization 2.5 mg NEB Q4H PRN (Reason: dyspnea or wheezing) Qty: 30 0RF benzonatate 100 mg Capsule 100 mg PO TID PRN (Reason: cough) Qty: 20 0RF doxycycline hyclate 100 mg Tablet 100 mg PO BID 4 Days Qty: 8 0RF prednisone 20 mg Tablet 40 mg PO DAILYWM 3 Days Qty: 6 0RF guaifenesin [Mucinex] 600 mg Tablet Extended Release 12hr 600 mg PO BID PRN (Reason: congestion) Qty: 10 0RF Continued cyanocobalamin (vitamin B-12) 1,000 mcg capsule 1,000 mcg PO QDAY calcium carbonate [Antacid (calcium carbonate)] 200 mg calcium (500 mg) tablet,chewable 200 mg PO BID cholecalciferol (vitamin D3) 25 mcg (1,000 unit) tablet 1,000 unit PO .Every 48 Hours multivitamin Tablet 2 tab PO QAM lisinopril 20 mg tablet 20 mg PO DAILY Qty: 90 3RF omeprazole 40 mg capsule,delayed release(DR/EC) 40 mg PO DAILY Qty: 90 3RF Discharge Orders: Discharge Order (Routine); Ordered 05/17/24 Ordered By: Jumana Bynum Patient Education: Acute Bronchitis (ED) Additional Instructions: I believe your symptoms are all from a viral infection. Use the inhaler as needed for shortness of breath. Also provided some cough medicine. When using the inhaler make sure to use the spacer. If you are wheezy or short of breath, use either the albuterol inhaler with a spacer or the nebulizer machine. Return for any new or worsening symptoms. At this time your oxygen was satting about 90-92% so it might not be a bad idea to get and [id number]-[id number] pulse ox. If he oxygen continues to be in the 80s for an extended period of time while your hand is not moving return for re-evaluation. 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 You may also add yogurt or kefir to your diet for a month. Take all of the antibiotic and prednisone as prescribed. Activity Level: No Restrictions Discharge Diet: Regular Follow Up Appointments: Abigail Castaneda MD [Primary Care Provider] - (7-10 days) Forms: [employer] Info Instructions
[2024-05-17 11:00] VITALS: BP 174/89; PULSE 74; RESP 18; TEMP 36.7; O2SAT 92
--- NOTE | 2024-05-17 14:43 | PC.NURSE ---
DC: Pt alert, oriented and vitally stable. Pt sats 90-93% on RA. Pt up independently, tolerates well. Pt educated on nebulizer use, set up and cleaning. DC education given to pt and family, topics including medications, follow up and symptoms worsening. Pt DC home with family at 1301.
== END 2024-05-17 13:01 | disposition home or self-care (01) | DRG 193 ==
LOC: ED 17:33 → MEDSURG 18:28
PROVIDERS: Family Medicine; Student in an Organized Health Care Education/Training Program; Admitting Provider Family Medicine; Emergency Provider Emergency Medicine; PCP Internal Medicine; Visit Provider Family Medicine
DX: J18.9 Pneumonia, unspecified organism (principal); J96.01 Acute respiratory failure with hypoxia; J98.01 Acute bronchospasm; Z98.84 Bariatric surgery status; Z96.612 Presence of left artificial shoulder joint; Z96.659 Presence of unspecified artificial knee joint; Z96.649 Presence of unspecified artificial hip joint; I35.1 Nonrheumatic aortic (valve) insufficiency; I71.21 Aneurysm of the ascending aorta, without rupture
CPT/HCPCS: 36415; 71045; 71275; 80048; 83735; 83880; 84484; 85025; 85379; 87040; 87631; 93005; 94640; 94761; 99284; 99285; A9270; J0456; J0696; J1650; J2919; J7050; J7512; Q9967

== ENCOUNTER 2024-11-04 19:49 | Emergency (ER) | payer MEDICARE, BC, SELFPAY ==
--- OUTSIDE RECORDS SUMMARY | 2024-11-04 19:51 | XMS_ITS | Clinical Summary ---
Author Organization [facility] Address [address] [place] [id number] Care Team Providers Care Motor Coach Tour Operator Name Role Phone Abigail Castaneda MD Primary Care Provider [phone]- [phone] Allergies Active Allergy Reactions Criticality Noted Date Comments Propoxyphene Nausea Only Medium 01/05/2009 Nsaids (Non-Steroidal Anti-Inflammatory Drug) Other - Describe In Comment Field 10/07/2012 Patient has bariatric surgery. Should not ever take NSAIDS due to high risk for gastric ulcers. Medications atenolol (TENORMIN) 50 mg tablet Take by mouth once daily. Active Pediatric Multivitamins-I nhan (FLINTSTONES COMPLETE) chewable tablet Take 1 tablet by mouth 2 times daily. 0 10/08/2012 Active CALCIUM CITRATE/VITAMIN D3 (CALCIUM CITRATE + D ORAL) Take 2,000 mg by mouth. Take up to 2000 mg by oral route every day in divided doses. Active Cyanocobalamin (VITAMIN B-12) 2,[address] 2,500 mcg under the tongue once daily. Active cholecalciferol (VITAMIN D3) 1,000 unit tabletIndicatio ns:Achlorhydria ,Vitamin B12 deficiency 0 Active LISINOPRIL ORAL Take [...] polyps 01/17/2012 History of colon polyps Immunizations Immunization Administration Dates Next Due COVID-19 vaccine ([address] 30mcg/0.3mL) P F, MDV 05/05/2020,04/14/2020 Social History Tobacco Use Types Packs/Day Years Used Date Smoking Tobacco: Former Cigarettes Q uit: 03/18/1975 Smokeless Tobacco: Never Alcohol Use Standard Drinks/Week Comments Yes 0 (1 standard drink = 0.6 oz pur e alcohol) once in awhile Comments No Sex and Gender Information Value Date Recorded Sex Assigned at Not on file 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 Gender Identity Not on file Sexual Orientation Not on file Obstetrics History Last Filed Vital Signs Vital Sign Reading Time Taken Comments Blood Pressure 143/76 01/09/2017 1:05 PM CDT Pulse 59 01/09/2017 1:05 PM CDT Temperature 36.5 C (97.7 F) 01/09/2017 10:08 AM CDT Respiratory Rate 16 01/09/2017 1:05 PM CDT Oxygen Saturation 96% 01/09/2017 1:05 PM CDT Inhaled Oxygen Concentration - - Weight 84 kg (185 lb 1.6 oz) 01/09/2017 10:08 AM CDT Height 160 cm (5' 3) 01/09/2017 10:08 AM CDT Body Mass Index 32.79 01/09/2017 10:08 AM CDT Plan of Treatment Health Maintenance Due Date Last Done Comments Tetanus booster 06/23/1954 Depression screening for age 12+ 1955 Pneumococcal series for age 50+ (1 of 1 - PCV) 06/23/1993 Zoster (shingles) series for age 50+ (1 of 2) 06/23/1993 DEXA/DXA scan for age 65+ 06/23/2008 Medicare Wellness for age 65+ 06/23/2008 BMI (ht and wt on same day) for age 18+ 12/17/2017 12/17/2016 RSV vaccine for adults or (1 - 1-dose 75+ series) 06/23/2018 COVID-19 vaccine series (2023- season) 2023 01/25/2022, 08/02/2021, 12/14/2020, Additional history exists Influenza Vaccine (#1) 2024 Hepatitis B series for 19+ Aged Out N o longer eligible based on patient's age to complete this topic Medical Devices Implanted Type Area Manufacturing Specialist Device Identifier Shelf Expiration Date Model / Serial / Lot Seamguard Reinforcement 60 Flex - [id number] Implanted:Qty: 3 on 10/06/2012 at [facility] N/A: Stomach W L [place] [id number] # / / [id number] Insurance MEDICARE PART B HB ONLY [facility] [place] MEDIC[place] PART B HB ONLY MEDICARE PART A HB ONLY [employer] [place] BLUE PB ONLY [employer] [place] BLUE HB ONLY Advance Directives * Full Code (Latest Code Status on File) Date Activated Date Inactivated Comments 10/06/2012 8:22 AM 10/08/2012 6:08 PM Care Teams Motor Coach Tour Operator Relationship Specialty Start Date End Date Abigail Castaneda MD PCP - General 12/10/08
--- OUTSIDE RECORDS SUMMARY | 2024-11-04 19:51 | XMS_ITS | Clinical Summary ---
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 Active Cholecalciferol (Vitamin D3) 1.25 MG (97168 UT) Capsule Take by mouth. Active Cyanocobalamin [...] 03/21/2021 Assessment & Plan (03/21/2021 4:58 PM FOOD SERVER): Shanna is status post EGD done for [...] ESOPHAGOGASTRODUODENOSCOP Y; Surgeon: Jimy Linda MD; Location: [facility] Medical History Medical History Date Comments [...] Comments Blood Pressure 165/91 02/28/2021 9:57 AM FOOD SERVER Pulse 63 02/28/2021 9:57 AM FOOD SERVER Temperature 36.4 C (97.5 F) 01/10/2021 10:31 AM CDT Respiratory Rate 18 01/10/2021 11:33 AM CDT [...] (Standing Order) 06/23/1962 TETANUS (Standing Order) 06/23/1962 Pneumococcal Vaccine: 50+ yr s (Standing Order) (1 of 1 - PCV) 06/23/1993 Shingrix (Zoster recombinant ) vaccine (Standing Order) (1 of 2) 06/23/1993 DXA,FEMALES AGE 65 OR GREATER 06/23/2008 RSV Vaccination (60+ yrs) (Abrysvo/Arexvy) (1 - 1-dose 75+ series) 06/23/2018 COVID-19 Vaccine (2023-2 5 season) 2023 HPV Vaccine (Standing Order) Aged Out No longer eligible based on patient's age to complete this topic Hepatitis B Vaccine (Standin g Order) Aged Out No longer eligible b ased on patient's age to complete this topic Insurance [facility] [place] BLUE MEDICARE COST PART A&B Care Teams Flower Grader Relationship Specialty Start Date End Date Abigail Castaneda MD [facility] AND [address] [address] PCP - General Internal Medicine 12/13/21
--- OUTSIDE RECORDS SUMMARY | 2024-11-04 19:51 | XMS_ITS | Encounter Summary ---
Author Organization [facility] Address [address] [address] Phone Care Team Providers Care C 13 Catapult Operator Name Role Phone Abigail Castaneda MD Primary Care Provider [phone]- [phone] Reason for Visit * Reason Comments Refill Request Encounter Details Date Type Department Care Team (Late st Contact Info) Description 08/20/2022 Refill [facility] [address] [place] [address] [phone] Jimy Linda MD [address] [phone] Refill Request Social History Tobacco Use Types [...] phase documented in this encounter Care Teams C 13 Catapult Operator Relationship Specialty Start Date End Date Abigail Castaneda MD [facility] [address] [place] [address] PCP - General Internal Medicine 12/13/21 documented as of this encounter
--- OUTSIDE RECORDS SUMMARY | 2024-11-04 19:51 | XMS_ITS | Clinical Summary ---
Author Organization [facility] Address [address] , [address] [place] [address] Phone Care Team Providers Care Manager Commission Name Role Phone [facility] Unavailable Unava ilable Conditions or Problems Problem Name Problem Code Onset Date Status Entry Date Provider Comment Standard Description Annotate Carpal tunnel syndrome of left wrist [id number] (SNOMED CT) Active Silvio Linda MD Carpal tunnel syndrome Medications No information available. Medications Administered No information available. Allergies, Adverse Reactions, Alerts No information available. Results Date Name Value Unit Range Flag Description Internal Other: Authorizatio n - OBS [email or web address] Yes Authoriza tion: Release of Information - Authorize [facility] - Payment and Healthcare Operations ROIAUTHOTHER Yes Authoriz ation: Release of Information - Authorize Others/Insurance - Payment and Healthcare Operations HIECONSENT Yes Consent To Release information to the Health Information Exchange (HIE) [email or web address] Yes Authorizat ion: Authorization for [facility] to leave messages, voicemail, send text messages, send emails AUTHRELHCARE Yes Authoriz ation: Release/Retrieval of Information to/from Healthcare Facilities, Pharmacy Benefit Payers and Providers AUTHPRIVPRAC Yes Authoriz ation: Notice of privacy practices AUTHBENEFIT Yes Authoriza tion: Assignment of Benefits and Payment Agreement Plan of Care No information available. Procedures Code Procedure Name Date Entry Date CPT-24735 Nerve Conduction 5-6 studies CPT-29571 EMG with NCS (5+ muscles) - 1 limb 05/15 Vital Signs No information available. Immunizations No information available. Advance Directives No information available.
--- OUTSIDE RECORDS SUMMARY | 2024-11-04 19:51 | XMS_ITS | Encounter Summary ---
Author Organization [facility] Address [address] [address] Phone Care Team Providers Care Apple Solutions Consultant Name Role Phone Abigail Castaneda MD Primary Care Provider [phone]- [phone] Reason for Visit * Reason Comments Refill Request Encounter Details Date Type Department Care Team (Late st Contact Info) Description 08/22/2022 Refill [facility] [address] [place] [address] [phone] Jimy Linda MD [address] [phone] Refill Request Social History Tobacco Use Types [...] phase documented in this encounter Care Teams Apple Solutions Consultant Relationship Specialty Start Date End Date Abigail Castaneda MD [facility] [address] [place] [address] PCP - General Internal Medicine 12/13/21 documented as of this encounter
[2024-11-04 19:53] VITALS: BP 194/95; PULSE 76; RESP 20; TEMP 36.5; O2SAT 98; BMI 32.6
--- NOTE | 2024-11-04 20:43 | ED.GENADULT ---
HPI - General Adult General Date Seen: 11/04/24 Chief complaint: Abdominal Pain Stated complaint: stomach pain Time Seen by Provider: 11/04/24 20:43 History of Present Illness HPI narrative: 79-year-old female with a history of gastric bypass surgery (gastric sleeve done [facility]), also ascending thoracic aorta or aneurysm, hypertension, elevated BMI, hysterectomy, cholecystectomy, tubal ligation, hip replacement, knee replacement. She had rather a sudden onset of pain in her epigastric region at about 530 this evening while she was driving. It is sharp in nature. It is continuous and constant. Does not radiate. It hurts more when she tries to lay down and a little bit better when she sits up. No nausea or vomiting. Bowel movements have been. No diarrhea. No antecedent symptoms. No fever chills. No previous episodes of similar pain. Related Data Home Medications ?Medication ?Instructions ?Recorded ?Confirmed calcium carbonate (Antacid 200 mg PO BID 09/20/21 07/01/24 (calcium carbonate)) cholecalciferol (vitamin D3) 25 1,000 unit PO .Every 48 Hours 09/20/21 07/01/24 mcg (1,000 unit) tablet cyanocobalamin (vitamin B-12) 1,000 mcg PO QDAY 09/20/21 07/01/24 1,000 mcg capsule multivitamin 2 tab PO QAM 02/16/22 07/01/24 Previous Rx's ?Medication ?Instructions ?Recorded lisinopril 20 mg tablet 20 mg PO DAILY #90 tabs 12/09/23 omeprazole 40 mg capsule,delayed 40 mg PO DAILY #90 caps 12/09/23 release albuterol sulfate 90 mcg/actuation 2 puff inhalation Q4-6H PRN 05/13/24 aerosol inhaler shortness of breath or wheezing #8.5 grams albuterol sulfate 2.5 mg/3 mL 2.5 mg (3 mL) NEB Q4H PRN dyspnea 05/17/24 (0.083 %) solution for nebulization or wheezing #30 mL benzonatate 100 mg capsule 100 mg PO TID PRN cough #60 caps 05/25/24 Allergies Allergy/AdvReac Type Severity Reaction Status Date / Time propoxyphene Allergy Intermediate Nausea Verified 11/04/24 21:52 NSAIDS (Non-Steroidal AdvReac Unknown Verified 11/04/24 21:52 Anti-Inflamma [facility] Medical History History of rheumatic fever (11/10/08) ?Z86.79 - Personal history of other diseases of the circulatory system (ICD-10) Surgical History History of gastric bypass (10/06/12) ?Z98.84 - Bariatric surgery status (ICD-10) History of carpal tunnel surgery of left wrist (06/07/22) ?Z98.890 - Other specified postprocedural states (ICD-10) 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) ?Z96.612 - Presence of left artificial shoulder joint (ICD-10) History of tubal ligation (11/10/08) ?Z98.51 - Tubal ligation status (ICD-10) History of total knee replacement (11/10/08) ?Z96.659 - Presence of unspecified artificial knee joint (ICD-10) History of total hip replacement (11/10/08) ?Z96.649 - Presence of unspecified artificial hip joint (ICD-10) History of squamous cell carcinoma in situ (SCCIS) of skin (2020) ?Z86.007 - Personal history of in-situ neoplasm of skin (ICD-10) History of primary hyperparathyroidism (11/10/08) ?Z86.39 - Personal history of other endocrine, nutritional and metabolic disease (ICD-10) History of hysterectomy (02/13/06) ?Z90.710 - Acquired absence of both cervix and uterus (ICD-10) History of cholecystectomy (11/10/08) ?Z90.49 - Acquired absence of other specified parts of digestive tract (ICD-10) History of cataract extraction (12/2015) ?Z98.49 - Cataract extraction status, unspecified eye (ICD-10) History of carpal tunnel syndrome (11/10/08) ?Z86.69 - Personal history of other diseases of the nervous system and sense organs (ICD-10) Social History Narrative: She lives with her on [address] in [place]. is primary healthcare power of collections attorney. Her daughter, Anahy Guzman, is secondary healthcare power of collections attorney. Remote history of smoking when she was young adult. She does not drink alcohol. Code status is full. What is your current living situation?: I presently have a place to live Problems where you live: no known problems Problems where you live details: NA In the past 12 months, utilities in danger of being shut off: no In past 12 months, lack of transportation kept you from medical appts, meetings, work, or getting things needed for daily living: no In the past 12 mos, have been you worried that your food would run out before you had money to buy more?: never true In the past 12 mos, the food you bought just didn't last and you didn't have money to buy more?: never true Highest level of school completed/degree received: Master's degree Smoking Status: Former smoker Do you use any of these nicotine containing products: None Second hand tobacco smoke exposure: No How often do you have a drink containing alcohol: monthly or less Alcohol type: wine How many standard drinks containing alcohol do you have on a typical day: 1 or 2 How often do you have six or more drinks on one occasion: Never AUDIT-C Alcohol total score: 1 Non-prescribed substance use: denies use Caffeine: Yes How often does anyone, including family, friends and others, physically hurt you: never How often does anyone, including family, friends and others, insult or talk down to you: never How often does anyone, including family, friends and others, threaten you with harm: never How often does anyone, including family, friends and others, scream or curse at you: never service: No Exam Narrative: Exam Narrative: Constitutional: Appears well-developed and well-nourished. Alert. Uncomfortable appearing. Conversant. Non toxic. HENT: Head: Atraumatic. Nose: Nose normal. Mouth/Throat: Oral mucosa is clear and moist. no trismus. Pharynx normal. Tonsils symmetric. No tonsillar enlargement, erythema, or exudate. Eyes: Conjunctivae normal. EOM normal. Pupils equal, round, and reactive to light. No scleral icterus. Neck: Normal range of motion. Neck supple. No tracheal deviation present. Cardiovascular: Normal rate, regular rhythm. No gallop. No friction rub. No murmur heard. Symmetric radial artery pulses Pulmonary/Chest: Effort normal. No stridor. No respiratory distress. No wheezes. No rales. No rhonchi . No tenderness. Abdominal: Soft. Bowel sounds normal. No distension. No mass. Epigastric tenderness. No pulsatile mass. No rebound. No guarding. No definite CVA tenderness. Musculoskeletal: RUE: Normal range of motion. No tenderness. No deformity LUE: Normal range of motion. No tenderness. No deformity RLE: Normal range of motion. No edema. No tenderness. No deformity LLE: Normal range of motion. No edema. No tenderness. No deformity Neurological: Alert and oriented to person, place, and time. Normal strength. CN II-VII intact. No sensory deficit. GCS eye subscore is 4. GCS verbal subscore is 5. GCS motor subscore is 6. Normal coordination Skin: Skin is warm and dry. No rash noted. No pallor. Normal capillary refill. Psychiatric: Normal mood. Normal affect. Const: Vital Signs, click to edit/add: Vital Signs - 24 hr 11/04/24 19:53 11/04/24 21:34 11/04/24 22:06 Temperature 97.7 F Pulse Rate 72 77 Pulse Rate [Pulse Oximeter] 76 Respiratory Rate 20 18 19 Blood Pressure 145/73 H Blood Pressure [Ri ght Upper Arm] 194/95 H Pulse Oximetry 98 95 95 Oxygen Delivery Me thod Room Air Course Course ED Course: Recheck-patient back from CT. Notes that her pain is quite a bit improved but still present. She also notes that she was just in the bathroom. She had not realized whole full her bladder was. She had a large volume urination and says her pain improved at least is much from emptying her bladder as it did from the pain meds. Repeat exam: splitter tender in the epigastrium. No CVA tenderness. No lower abdominal tenderness. No guarding or rebound. No Dubon sign. Vital Signs Vital signs: Initial Vital Signs Temperature 97.7 F 11/04/24 19:53 Temperature Source Temporal Artery Scan 11/04/24 19:53 Pulse Rate 76 11/04/24 19:53 Pulse Rhythm Regular 11/04/24 19:53 Respiratory Rate 20 11/04/24 19:53 Blood Pressure 194/95 H 11/04/24 19:53 Blood Pressure Mean 128 H 11/04/24 19:53 Blood Pressure Position Sitting 11/04/24 19:53 Pulse Oximetry 98 11/04/24 19:53 Oxygen Delivery Method Room Air 11/04/24 19:53 Vital Signs Temperature 97.7 F 11/04/24 19:53 Pulse Rate 76 11/04/24 19:53 Respiratory Rate 20 11/04/24 19:53 Blood Pressure 194/95 H 11/04/24 19:53 Pulse Oximetry 98 11/04/24 19:53 Oxygen Delivery Method Room Air 11/04/24 19:53 Temperature 97.7 F 11/04/24 19:53 Pulse Rate 77 11/04/24 22:06 Respiratory Rate 19 11/04/24 22:06 Blood Pressure 145/73 H 11/04/24 22:06 Pulse Oximetry 95 11/04/24 22:06 Oxygen Delivery Method Room Air 11/04/24 19:53 Medications Administered Medications: Generic Name Dose Route Start Last Admin Trade Name Freq PRN Reason Stop Dose Admin Hydromorphone HCl 0.5 mg 11/04/24 20:53 11/04/24 21:15 Hydromorphone 0.5 Mg/0.5 Ml Inj IVP 0.5 mg Q1H PRN Administration Pain Discontinued Medications Generic Name Dose Route Start Last Admin Trade Name Freq PRN Reason Stop Dose Admin Ondansetron HCl 4 mg 11/04/24 20:53 11/04/24 21:14 Ondansetron 2 Mg/Ml Inj IVP 11/04/24 20:54 4 mg ONCE ONE Administration Medical Decision Making [facility] Narrative Medical decision making narrative: Presented to the Emergency Department with epigastric abdominal pain. The differential diagnosis of abdominal pain includes: Early Appendicitis, Bowel Obstruction, Ulcer, Ischemia, Diverticulitis, Pancreatitis, UTI, kidney stone, Enteritis/Colitis, amongst many other etiologies. She is status post cholecystectomy. She does have a history of gastric sleeve. Laboratory testing does not reveal a cause for the patient's pain. White count normal. LFTs lipase normal. CT imaging shows right-sided hydronephrosis without any definitive obstructing stone, however stone in the distal ureter could be present but not seen because of streak artifact from her hip replacements. However she is not really having flank pain her pain is in the upper midline periumbilical and epigastrium . Urinalysis is essentially normal save for trace leukocyte esterase. No hematuria to suggest kidney stone. Notably she did have a fairly full bladder on the CT scan and after CT had a large volume urine output with some improvement in her overall abdominal discomfort. Consider the possibilitye that she had urine reflux upper right collecting system because of her distended bladder. No clear sign of UTI or pyelonephritis. No hematuria giving secondary evidence for kidney stone. Although she is clearly tender on her abdominal exam, no peritoneal findings. Consider non abdominal causes of her epigastric pain. Screening EKG shows no evidence for ischemia. She is not having any chest pain or back pain to suggest an aortic pathology. Overall her pain is improved here in the ER but not resolved. Cause of her epigastric pain is not clear at this time. Discussed, in detail, with the patient and her daughter. Patient is overall feeling better and requesting discharge. I think that is reasonable. The exact etiology of the abdominal pain is not clear at this time. No life threatening cause or need for emergent surgery or hospital admission is detected today. The patient was advised that if symptoms do not completely resolve within another 8-12 hours re-evaluation with primary care or return to the ED is indicated. The patient also understands that if they worsen, they should return to the ER right away. I discussed the uncertainty about the diagnosis and answered the patient's questions. Abdominal pain return precautions discussed. Instymeds for Tatum-4 tablets and Zofran-10 tablets that she can use p.r.n.. She will return to the ER right away with worsening pain or return to the ER tomorrow morning if pain is not completely resolved by then. Lab Data Labs: Lab Results 11/04/24 11/04/24 Range/Units 21:05 22:27 WBC 8.21 (4.50-11.00) K/uL RBC 5.16 (4.00-5.20) m/uL Hgb 15.2 (12.0-16.0) gm/dL Hct 46.0 (33.0-51.0) % MCV 89 (80-100) fL MCH 30 (26-34) pg MCHC 33 (32-36) gm/dL RDW Coeff of Blaise 13.0 (11.5-15.5) % Plt Count 170 (140-440) K/uL Neut % (Auto) 59.7 (42.0-72.0) % Lymph % (Auto) 26.2 (20-44) % Lynn % (Auto) 10.6 (0.0-11.0) % Eos % (Auto) 2.9 (0.0-7.0) % Baso % (Auto) 0.5 (0.0-3.0) % Neut # (Auto) 4.90 (1.7-7.0) K/uL Lymph # (Auto) 2.15 (0.90-2.90) K/uL Lynn # (Auto) 0.90 (0.00-0.90) K/UL Eos # (Auto) 0.24 (0.00-0.50) K/uL Baso # (Auto) 0.04 (0.00-0.30) K/uL Abs Immat Gran (auto) 0.01 (0.00-0.30) K/uL Imm/Tot Granulo (auto) 0.1 % Sodium 136 (135-149) mmol/L Potassium 4.1 (3.6-5.1) mmol/L Chloride 101 (96-114) mmol/L Carbon Dioxide 30 (20-32) mmol/L Anion Gap 5 L (7-15) mEq/L BUN 18 (7-30) mg/dL Creatinine 0.8 (0.5-1.5) mg/dL Estimated Creat Clear 38.10 Estimated GFR 74 ml/min Glucose 94 (60-115) mg/dL Lactate 0.9 (0.5-1.9) mmol/L Calcium 9.5 (8.4-10.6) mg/dL Total Bilirubin 0.5 (0.1-1.5) mg/dL AST 30 (12-35) U/L ALT 16 (4-35) U/L Alkaline Phosphatase 85 (40-150) U/L Total Protein 6.5 (6.0-8.3) g/dL Albumin 4.1 (3.3-5.0) g/dL Lipase 95 (23-300) U/L Urine Color Yellow (Yellow) Urine Appearance Clear (Clear) Urine pH 5.5 (5.0-8.5) Ur Specific [place] 1.010 (1.000-1.030) Urine Protein Negative (Negative) Urine Glucose (UA) Negative (Negative) Urine Ketones Negative (Negative) Urine Blood Negative (Negative) Urine Nitrite Negative (Negative) Urine Bilirubin Negative (Negative) Urine Urobilinogen 0.2 (0.2-1.0) Ur Leukocyte Esterase 1+ A (Negative) Urine RBC 0-2 (0-2) Urine WBC 0-2 (0-5) Ur Squamous Epith Cells Few (None-Few) Amorphous Sediment Few A (None) Urine Bacteria Few A (None) Imaging Data CT scan - abdomen: Attestation: I have reviewed the pertinent imaging results. Radiologist's impression: Impression: Suspect mild right hydronephrosis. No calculus is visualized, though the pelvis is limited in evaluation due to streak artifact from hip replacements which may obscure a small distal calculus. No other acute abnormality appreciated. ECG Data Attestation: I personally reviewed and interpreted this ECG as follows: Interpretation: Normal sinus rhythm Rate 70 CO interval 1 9 Normal QRS axis. No pathologic Q-waves. No ST segment elevation or depression. QTC 402/QTC 434 Discharge Plan Discharge Clinical Impression: Abdominal pain, acute, epigastric Patient Disposition: Home, Self-Care Condition: Stable Instructions: Abdominal Pain (ED) Additional Instructions: As we discussed, at this point the cause of your pain is not clear based on your workup so far. Please monitor your symptoms carefully and if you have worsening pain, worsening nausea, vomiting, lightheadedness or weakness, or if you have new symptoms such as change in your pain, new chest pain or new back pain, please return to the ER right away. If her pain is not completely resolved, please return to the ER in 8-12 hours. You can use Tatum if needed for pain. Use Zofran if needed for nausea. Be careful put his Tatum can cause dizziness and drowsiness, and can be addictive. Prescriptions: No Action cyanocobalamin (vitamin B-12) 1,000 mcg capsule 1,000 mcg PO QDAY calcium carbonate [Antacid (calcium carbonate)] 200 mg calcium (500 mg) tablet,chewable 200 mg PO BID cholecalciferol (vitamin D3) 25 mcg (1,000 unit) tablet 1,000 unit PO .Every 48 Hours multivitamin Tablet 2 tab PO QAM lisinopril 20 mg tablet 20 mg PO DAILY Qty: 90 3RF omeprazole 40 mg capsule,delayed release(/EC) 40 mg PO DAILY Qty: 90 3RF benzonatate 100 mg capsule 100 mg PO TID PRN (Reason: cough) Qty: 60 1RF albuterol sulfate 90 mcg/actuation HFA aerosol inhaler 2 puff inhalation Q4-6H PRN (Reason: shortness of breath or wheezing) Qty: 8.5 0RF albuterol sulfate 2.5 mg /3 mL (0.083 %) Solution For Nebulization 2.5 mg NEB Q4H PRN (Reason: dyspnea or wheezing) Qty: 30 0RF Follow Up/Referrals: Abigail Castaneda MD [Primary Care Provider, Internal Medicine] Stand Alone Forms: [employer] Info Instructions
--- NOTE | 2024-11-04 20:45 | CRLHL7_ITS ---
For Patients: As a result of the Century Cures Act, medical imaging exams and procedure reports are released immediately into your electronic medical record. You may view this report before your referring provider. If you have questions, please contact your health care provider. Indication: Epigastric abdominal pain, sudden onset Technique: CT through the abdomen and pelvis following 93 mL Isovue 370 IV contrast Comparison: CT abdomen pelvis performed 12/17/2022 Findings: Lower chest: Hiatal hernia, not significantly changed from prior study. Hepatobiliary: No significant parenchymal abnormality is appreciated. Cholecystectomy. Mild biliary dilation not felt to be out of proportion for age and cholecystectomy status. Spleen: Unremarkable. Pancreas: No acute abnormality appreciated. Adrenal glands: No acute abnormality appreciated. Kidneys: Mild prominence of the right collecting system and ureter. No acute parenchymal abnormality. No visualized calculus. Bowel: No obstruction. No focal perienteric or pericolonic stranding is appreciated. Vascular: Calcified and noncalcified atherosclerosis. Lymph nodes: No gross lymphadenopathy. Peritoneum: No free air. No free fluid. : No visualized calculus, though evaluation is limited due to streak artifact. Soft tissues: Pelvic prolapse. Pessary present. Inguinal and femoral hernias noted. Fluid noted in the right lateral most hernia, decreased in size compared to prior study. Bowel in the left hernia, new from prior study without evidence of incarceration or strangulation. Left iliopsoas bursitis. Bones: Bilateral hip replacements. Lumbar fusion. Degenerative changes of the spine and pelvis. No acute abnormality appreciated. Impression: Suspect mild right hydronephrosis. No calculus is visualized, though the pelvis is limited in evaluation due to streak artifact from hip replacements which may obscure a small distal calculus. No other acute abnormality appreciated. Please note that all CT scans at this facility use dose modulation, iterative reconstruction, and/or weight-based dosing when appropriate to reduce radiation dose to as low as reasonably achievable. Dictated by Gavin Castañeda MD @ 11/04/2024 10:09:28 PM (Electronically Signed)
--- OUTSIDE RECORDS SUMMARY | 2024-11-04 21:00 | XMS_ITS | Clinical Summary ---
Author Organization [facility] Address [address] , [address] [place] [address] Phone Care Team Providers Care Staff Appraiser Name Role Phone [facility] Unavailable Unava ilable Conditions or Problems Problem Name Problem Code Onset Date Status Entry Date Provider Comment Standard Description Annotate Carpal tunnel syndrome of left wrist [id number] (SNOMED CT) Active Silvio Linda MD Carpal [...] Procedures Code Procedure Name Date Entry Date CPT-29164 Nerve Conduction 5-6 studies CPT-82246 EMG with NCS (5+ muscles) - 1 limb 05/15 Vital Signs No information available. Immunizations No information available. Advance Directives No information available.
[2024-11-04 21:09] LABS: Lactate* 0.9 mmol/L (0.5-1.9)
[2024-11-04 21:12] LABS: Hematocrit 46.0 % (33.0-51.0); Hemoglobin* 15.2 gm/dL (12.0-16.0); Immature Granulocytes Abs Auto 0.01 K/uL (0.00-0.30); Immature Granulocytes Pct Auto 0.1 %; Lymphocytes Absolute Auto 2.15 K/uL (0.90-2.90); Mean Corpuscular HGB Conc 33 gm/dL (32-36); Mean Corpuscular Hemoglobin 30 pg (26-34); Mean Corpuscular Volume 89 fL (80-100); RDW Coefficient of Variation % 13.0 % (11.5-15.5); Red Blood Count 5.16 m/uL (4.00-5.20); White Blood Count* 8.21 K/uL (4.50-11.00)
[2024-11-04] MEDS: ONDANSETRON 2 MG/ML inj 4 MG IVP (21:14)
[2024-11-04 21:18] LABS: Slide Review Reflex No
[2024-11-04 21:26] LABS: Albumin* 4.1 g/dL (3.3-5.0); Chloride* 101 mmol/L (96-114); Sodium* 136 mmol/L (135-149)
[2024-11-04 21:27] LABS: Potassium* 4.1 mmol/L (3.6-5.1)
[2024-11-04 21:29] LABS: Alanine Aminotransferase* 16 U/L (4-35); Alkaline Phosphatase* 85 U/L (40-150); Anion Gap 5 mEq/L (7-15); Aspartate Amino Transferase* 30 U/L (12-35); Bilirubin Total* 0.5 mg/dL (0.1-1.5); Blood Urea Nitrogen* 18 mg/dL (7-30); Carbon Dioxide* 30 mmol/L (20-32); Creatinine* 0.8 mg/dL (0.5-1.5); Est. Creatinine Clearance* 38.10; Estimated Glomerular Filt Rate 74 ml/min; Total Protein* 6.5 g/dL (6.0-8.3)
[2024-11-04 21:30] LABS: Calcium* 9.5 mg/dL (8.4-10.6); Glucose* 94 mg/dL (60-115)
[2024-11-04 21:34] VITALS: PULSE 72; RESP 18; O2SAT 95
[2024-11-04 22:06] VITALS: BP 145/73; PULSE 77; RESP 19; O2SAT 95
[2024-11-04 22:33] LABS: Appearance Urine Clear (Clear)
== END 2024-11-04 23:48 | disposition home or self-care (01) ==
PROVIDERS: Emergency Provider Emergency Medicine; PCP Internal Medicine
DX: R10.13 Epigastric pain (principal)
CPT/HCPCS: 36415; 74177; 80053; 81001; 83605; 83690; 85025; 87086; 93005; 96374; 96375; 96376; 99283; 99284; 99285; J1171; J2405; Q9967

== ENCOUNTER 2024-11-26 08:34 | Outpatient (CLI) | payer MEDICARE, BC, SELFPAY | END 2024-11-26 08:35 | disposition home or self-care (01) | LOC: NFLDREF 12-01 06:49 | PROVIDERS: PCP Internal Medicine; Referring Provider Internal Medicine; Visit Provider Internal Medicine | DX: Z98.84 Bariatric surgery status (principal); I10 Essential (primary) hypertension; Z00.00 Encounter for general adult medical examination without abnormal findings; Z68.39 Body mass index [BMI] 39.0-39.9, adult | CPT/HCPCS: 80053; 82306; 82525; 82607; 82728; 83540; 83550; 83735; 84443; 84446; 84590; 84597; 84630 ==

== ENCOUNTER 2024-12-21 12:48 | Outpatient (CLI) | payer MEDICARE, BC, SELFPAY | END 2024-12-21 12:49 | disposition home or self-care (01) | LOC: RAD 12:49 | PROVIDERS: PCP Internal Medicine; Visit Provider Internal Medicine | DX: I35.1 Nonrheumatic aortic (valve) insufficiency (principal); I51.7 Cardiomegaly; I35.0 Nonrheumatic aortic (valve) stenosis; I34.0 Nonrheumatic mitral (valve) insufficiency; I07.1 Rheumatic tricuspid insufficiency | CPT/HCPCS: 93306 ==

== ENCOUNTER 2025-01-11 09:53 | Outpatient (CLI) | payer MEDICARE, BC, SELFPAY ==
--- NOTE | 2025-01-11 10:15 | CRLHL7_ITS ---
For Patients: As a result of the Century Cures Act, medical imaging exams and procedure reports are released immediately into your electronic medical record. You may view this report before your referring provider. If you have questions, please contact your health care provider. INDICATION: BILATERAL SCREENING MAMMOGRAM, ASYMPTOMATIC 79 Y/O FEMALE COMPARISON: 01/09/2024, 01/07/2023, 01/05/2022 TECHNIQUE: Digital mammogram in CC and MLO projections including computer-aided detection (CAD) and tomosynthesis. BREAST COMPOSITION: There are scattered areas of fibroglandular density. FINDINGS: No suspicious findings. ASSESSMENT: BI-RADS 2 Benign RECOMMENDATION: Annual screening mammogram. A lay language report of this examination will be provided to the patient. Dictated by: Bakari Flores MD @ 01/11/2025 11:16:56 (Electronically Signed)
== END 2025-01-11 09:54 | disposition home or self-care (01) ==
LOC: MAMMO 09:53
PROVIDERS: PCP Internal Medicine; Visit Provider Internal Medicine
DX: Z12.31 Encounter for screening mammogram for malignant neoplasm of breast (principal)
CPT/HCPCS: 77063; 77067